=== PATIENT | male | born 1960 | race Caucasian/White ===

== ENCOUNTER 2017-10-21 10:38 | Inpatient (IN) | payer BC ==
--- NOTE | 2017-10-21 11:17 | ED ---
Lower Extremity - HPI Summary HPI Summary: Patient is a 57-year-old male who presents to emergency department for redness and swelling to his right ankle. Patient states he noticed swelling and pain to his right ankle 3 days ago. He states he noticed redness and warmth last night. He denies any injuries. He is in its uncontrolled diabetic. Patient states his last A1c was 7. Denies fever, chills, nausea, vomiting. Symptoms are [id number] in severity. Movement and touching ankle makes symptoms worse. Elvation makes symptoms better. 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 Pain Intensity: 7 - Allergies/Home Medications Allergies/Adverse Reactions: Allergies Allergy/AdvReac Type Severity Reaction Status Date / Time No Known Allergies Allergy Verified 10/21/17 10:56 PMH/Surg Hx/FS Hx/Imm Hx Previously Healthy: Yes Endocrine/Hematology History: Reports: Hx Diabetes - TYPE II Denies: Hx Thyroid Disease Cardiovascular History: Reports: Hx Hypertension Respiratory History: Reports: Hx Sleep Apnea Denies: Hx Asthma, Hx Chronic Obstructive Pulmonary Disease (COPD) GI History: Denies: Hx Ulcer History: Reports: Hx Kidney Stones - 03/2014-LEFT Musculoskeletal History: Reports: Hx Arthritis Sensory History: Denies: Hx Hearing Aid Comment Only: Hx Contacts or Glasses - GLASSES Opthamlomology History: Comment Only: Hx Contacts or Glasses - GLASSES - Surgical History Surgery Procedure, Year, and Place: 2010 LEFT hip replacement Hx Anesthesia Reactions: No Infectious Disease History: No Infectious Disease History: Denies: Hx Clostridium Difficile, Hx Hepatitis, Hx Human Immunodeficiency Virus (HIV), Hx of Known/Suspected MRSA, Hx Shingles, Hx Tuberculosis, Hx Known/ Suspected VRE, Hx Known/Suspected VRSA, History Other Infectious Disease, Traveled Outside the [place] in Last 30 Days - Social History Occupation: Employed Full-time Lives: With Family Alcohol Use: None Substance Use Type: Reports: None Smoking Status (MU): Former Smoker Type: Cigarettes Amount Used/How Often: 1PPD 4 YRS Length of Time of Smoking/Using Tobacco: 4 YRS Have You Smoked in the Last Year: No Review of Systems Constitutional: Negative Negative: Fever, Chills Gastrointestinal: Negative Negative: Vomiting, Nausea Positive: Other - Pain, redness, swelling to lateral right ankle. Positive: Other - Redness to right ankle All Other Systems Reviewed And Are Negative: Yes Physical Exam Triage Information Reviewed: Yes Vital Signs On Initial Exam: Initial Vitals Temp Pulse Resp BP Pulse Ox 97.1 F 85 18 162/90 96 10/21/17 10:52 10/21/17 10:52 10/21/17 10:52 10/21/17 10:52 10/21/17 10:52 Vital Signs Reviewed: Yes Appearance: Positive: Well-Appearing - Pt. lying in bed in NAD. present. Skin: Positive: Warm, Dry Head/Face: Positive: Normal Head/Face Inspection Eyes: Positive: Normal Neck: Positive: Supple Musculoskeletal: Positive: Other - Dermatitis venous stasis changes noted to bilateral lower extremities. Moderate edema noted to the right ankle with erythema and warmth overlying the lateral and medial aspect extending to the distal leg. Able to actively and passively move ankle with pain. No calf pain or edema. No wounds on foot. Neurological: Positive: Normal, CN Intact II-III Psychiatric: Positive: Affect/Mood Appropriate Diagnostics - Vital Signs Vital Signs Temp Pulse Resp BP Pulse Ox 10/21/17 10:52 97.1 F 85 18 162/90 96 - Laboratory Result Diagrams: 10/21/17 11:20 10/21/17 11:20 Lab Statement: Any lab studies that have been ordered have been reviewed, and results considered in the medical decision making process. Lower Extremity Course/Dx - Course Course Of Treatment: Patient presenting to the ER for an extensive cellulitis to his right ankle. He is afebrile and well-appearing. Vital signs within normal limits. Basic labs were drawn x-ray ordered. X-ray shows soft tissue edema without signs of fracture or osteomyelitis, reading per radiology. CBC shows a leukocytosis of 21,000. Uric acid within normal limits. Glucose elevated at 200. Patient is given a dose of IV Rocephin. Given the leukocytosis and extent of cellulitis hospitalist was consulted for admission. I spoke with hospitalist physician golf course assistant, Geetha Porter, and pt. will be accepted to the hospitalist service. Lortab given for pain. Results and plan discussed with pt. and . - Diagnoses Differential Diagnosis/HQI/PQRI: Positive: Cellulitis, Fracture (Closed), Gout, Infection, Osteomyelitis, Sprain, Strain Provider Diagnoses: Cellulitis, Leukocytosis Discharge - Sign-Out/Discharge Documenting (check all that apply): Patient Departure - Discharge Plan Condition: Stable Disposition: ADMITTED TO [facility] Referrals: Pedro aPndey MD [Primary Care Provider] - - Billing Disposition and Condition Condition: STABLE Disposition: Admitted to [facility]
[2017-10-21 11:30] LABS: Hematocrit 48 % (42-52); Hemoglobin 16.5 g/dl (14.0-18.0); Mean Corpuscular HGB Conc 35 g/dl (31-36); Mean Corpuscular Hemoglobin 33 pg (27-31); Mean Corpuscular Volume 96 fL (80-94); Mean Platelet Volume 8.5 um3 (7.4-10.4); Platelet Count 130 10^3/ul (150-450); Red Blood Count 4.96 10^6/ul (4.00-5.40); Red Cell Distribution Width 15 % (10.5-15); White Blood Count 21.1 10^3/ul (3.5-10.8)
[2017-10-21] MEDS ORDERED: HYDROcodone/ACETAMIN 5-325 MG* 1 TAB PO ONE (11:45)
[2017-10-21 11:54] LABS: ABS Basophils 0.1 10^3/ul (0-0.2); ABS Eosinophils 0.1 10^3/ul (0-0.6); ABS Lymphocytes 1.3 10^3/ul (1.0-4.8); ABS Monocytes 1.7 10^3/ul (0-0.8); ABS Neutrophils 17.9 10^3/ul (1.5-7.7); ABS Nucleated RBC 0 10^3/ul; Eosinophil % 0.3 % (0-6); Nucleated Red Blood Cells % 0.1
[2017-10-21 11:57] LABS: EGFR Non-African American 70.7 (>60); Uric Acid 6.9 mg/dL (4.4-7.6)
[2017-10-21] MEDS ORDERED: NS 0.9% 1000 ML* 1,000 ML IV ONE (11:59)
[2017-10-21] MEDS ORDERED: cefTRIAXone(*) 1 GM in NS 0.9% 50 ML* 50 ML IVPB ONE (11:59)
--- NOTE | 2017-10-21 12:22 | RAD ---
INDICATION: Right ankle pain and swelling. TECHNIQUE: 3 views of the right ankle were obtained. FINDINGS: There is diffuse soft tissue swelling. The bones are in normal alignment. No significant focal osseous abnormality or fracture is seen. There are large calcaneal spurs and ossification present in the distal Achilles tendon. IMPRESSION: DIFFUSE SOFT TISSUE SWELLING.
[2017-10-21] MEDS ORDERED: Albuterol 2.5 MG/3 ML NEB.SOL* (0.083%) INH PRN (14:23)
[2017-10-21] MEDS ORDERED: Ondansetron INJ* 2 MG/ML VIAL IV PRN (14:23)
[2017-10-21] MEDS ORDERED: Al Hydrox/Mg Hydrox/Simet LIQ* 30 ML UDC PO PRN (14:23)
[2017-10-21] MEDS ORDERED: Morphine VIAL* 4 MG/ML VIAL (1 ml vial) IV PRN (14:23)
[2017-10-21] MEDS ORDERED: Magnesium Hydroxide LIQ* 30 ML UDC PO PRN (14:23)
[2017-10-21] MEDS ORDERED: Acetaminophen TAB* 325 MG PO PRN (14:23)
[2017-10-21] MEDS ORDERED: Dextrose 50% Syringe 50 ML* 25 GM/50 ML SYRINGE IV PUSH PRN (14:34)
[2017-10-21] MEDS ORDERED: Vancomycin(*) 1,000 MG in NS 0.9% 250 ML* 250 ML IVPB ONE (14:35)
[2017-10-21] MEDS ORDERED: Vancomycin 2000 MG X 1 dose, then per Pharmacy PROTOCOL IVPB ONE ×2 (15:15)
[2017-10-21] MEDS ORDERED: Vancomycin per Pharmacy* NOTE FOLLOW UP PRN (15:16)
[2017-10-21] MEDS: Insulin GLARGINE(*) 1 UNITS UNIT SUBCUT SCH (17:49)
[2017-10-21] MEDS: Insulin LISPRO* 1 UNITS UNIT SUBCUT SCH ×2 (17:51→21:53)
--- NOTE | 2017-10-21 20:18 | HP ---
CC: Dr. ePdro Pandey; Dr. Steven Givens * ADMISSION HISTORY AND PHYSICAL: DATE OF ADMISSION: 10/21/17 PATIENT OF: Charlene Caballero DO, as attending hospitalist.* (DICTATED BY MARICEL TRAMMELL) PRIMARY CARE PHYSICIAN: Dr. Pedro Pandey. PRIMARY MINT MACHINE OPERATOR: Dr. Steven Givens. CHIEF COMPLAINT: Right foot and ankle swelling and redness. HISTORY OF PRESENT ILLNESS: Mr. Cat is a 57-year-old gentleman who has past medical history significant for hypertension, hyperlipidemia, insulin-dependent diabetes mellitus, as well as rheumatoid arthritis, for which he takes methotrexate and monthly infusions who presented to the emergency room with complaints of 2 days history of worsening right foot and ankle pain and swelling. The patient notes that he started noticing some pain at his right ankle 2 days ago while he was working. 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 He denies any injury, twisting his ankle, or taking a wrong step causing pain to his foot. He has history of cellulitis of his right lower extremity years ago, but he tells me it was involving more of his leg and never to his ankle. He also has remote history of uric acid kidney stones, for which he had cystoscopy with placement of left ureteral stent back in [address] Francois. He has been maintained on allopurinol, but denies any history of gouty arthritis. The patient noticed increased swelling and redness of his right ankle and foot to the point that he has not been able to bear weight on it, for which he came to the emergency room for further evaluation. He has been suffering from morbid obesity most of his adult life and he also has been insulin-dependent diabetic for an extended period of time. He tells me that his blood sugar at home has been very good overall, which measures between 130 and 140 postprandial. His latest hemoglobin A1c was about a month ago with value of 7.0. He has been seen by Dr. Steven Givens for management of his diabetes. He also has history of rheumatoid arthritis, for which he takes monthly infusions of tocilizumab and his last infusion was approximately 2 weeks ago. He was evaluated in the emergency room and was found to have leukocytosis with white count of 21,000. The patient himself denies any fever or chills at home. He also had an elevated C-reactive protein of 21.5, for which we were asked to see him for further evaluation of right foot cellulitis. He had an ankle x-ray that revealed significant soft tissue swelling, but there was no evidence of any bony involvement or osteomyelitis. We were asked to see the patient to consider admission for IV antibiotics ad further evaluation of right foot and ankle swelling and redness. PAST MEDICAL HISTORY: As mentioned above, significant for: 1. Hypertension. 2. Hyperlipidemia. 3. Morbid obesity. 4. Type 2 insulin-dependent diabetes mellitus. 5. Rheumatoid arthritis, for which he takes methotrexate every week and immunomodulator infusions once a month. 6. Also had history of anxiety and depression. PAST SURGICAL HISTORY: Significant for: 1. Left hip total arthroplasty. 2. Left cystoscopy with ureteral stent placement. CURRENT MEDICATIONS: His medications at home include: 1. Allopurinol 300 mg p.o. daily. 2. Lipitor 20 mg p.o. q.h.s. 3. BuSpar 10 mg p.o. t.i.d. 4. Diclofenac topical cream as needed. 5. Trulicity 0.75 mg subcu injections once weekly. 6. Folic acid 1 mg p.o. daily. 7. Hydrochlorothiazide 12.5 mg p.o. daily. 8. [place] 1 tablet q.4 hours as needed for pain. 9. Insulin SoloSTAR pen 85 units subcu b.i.d. 10. Insulin Humalog subcu per sliding scale. 11. Lisinopril 40 mg p.o. daily. 12. Metformin 1500 mg p.o. q.p.m. and 1000 mg p.o. q.a.m. 13. Methotrexate 2.5 mg tablet, 6 tablets p.o. q. weekly. 14. Paxil 40 mg p.o. daily. 15. Potassium citrate 2 tablets p.o. t.i.d. 16. Inderal 80 mg p.o. daily. 17. Actemra 650 mg IV infusion once monthly. ALLERGIES: He has no known drug allergies. FAMILY HISTORY: Reviewed and noncontributory. SOCIAL HISTORY: The patient is , lives with his , who carries the health care proxy. 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 He is a nonsmoker who drinks alcohol rarely and caffeine intake is minimal REVIEW OF SYSTEMS: See HPI. Otherwise, 14 points of review of systems were evaluated and essentially negative. PHYSICAL EXAMINATION GENERAL: He is a pleasant morbidly obese, middle-aged gentleman, in no acute distress or discomfort at the time of admission. VITAL SIGNS: Revealed a temperature of 97.1, blood pressure of 162/90, pulse of 85, respirations of 18 with O2 sat of 96% on room air. HEENT: Head is normocephalic, atraumatic. Sclerae anicteric. PERRLA. EOMs intact. Oropharynx is pink and moist. NECK: Supple. Trachea midline. No cervical adenopathy or thyromegaly. LUNGS: Clear to auscultation bilaterally. HEART: Regular rate and rhythm. Normal S1 and S2 without rubs, murmurs, or gallops. BACK: With normal curvature. No CVA tenderness. ABDOMEN: Soft, round, and obese, nontender and nondistended. No hernias, masses, or hepatosplenomegaly. RECTAL: Exam deferred at this time. EXTREMITIES: Without cyanosis, clubbing, or edema. Examination of the right lower extremity revealed marked swelling and erythema noted to the entire ankle and the dorsal aspect of the right foot with a moderate tenderness and warmth on palpation. Pedal pulse was assessed due to swelling. There is no crepitus, skin changes suggesting any gangrene. Sensation is intact. NEUROLOGIC: He is awake, alert, and oriented. Tongue is midline. There is no neurological deficit. LABORATORY WORKUP: CBC with white count of 21,000, hemoglobin 16.5, hematocrit 48, and platelets of 130. Chemistry panel with sodium of 133, potassium 4.5, chloride 96, CO2 of 27, BUN of 23, and creatinine of 1.0, glucose was 172. Lactic acid 2.1. C-reactive protein 21. LFTs within normal limits. ACCESSORY DIAGNOSTIC DATA: As mentioned above, ankle x-ray on the right side revealed diffuse soft tissue swelling. ASSESSMENT: A 57-year-old gentleman with past medical history significant for hypertension, hyperlipidemia, insulin-dependent diabetes mellitus, and morbid obesity who presented to the emergency room with 2 days history of worsening right ankle and foot pain and swelling and found to have leukocytosis and evidence on exam of lower extremity cellulitis. PLAN AND MANAGEMENT: 1. Right foot and ankle cellulitis. The patient will be admitted to the inpatient services under hospitalist care. He had a dose of ceftriaxone in the emergency room and I will add a dose of vancomycin based on his weight and let the pharmacy calculate followup doses. He denied any fever and he does not appear to be tachycardic and does not have any other criteria for sepsis. We will continue antibiotic coverage in addition to glycemic control. 2. Hypertension. We will continue his lisinopril and hydrochlorothiazide. 3. Type 2 insulin-dependent diabetes mellitus. We will continue his Lantus coverage b.i.d. as well as lispro per sliding scale and obtain fingersticks per protocol q.a.c. and q.h.s. His hemoglobin A1c was done about a month ago. Per the patient, it was 7.0 and I will not repeat it at this point. 4. Hyperlipidemia. We will continue his statin therapy. 5. History of uric acid nephrolithiasis. We will maintain the patient on allopurinol and I will repeat his uric acid level to rule out any possibility of gouty arthritis that may initiate his cellulitis. 6. Obstructive sleep apnea. We will continue his CPAP at home. 7. Morbid obesity. Supportive care. 8. Rheumatoid arthritis. We will provide pain medication and he appears to be stable at this point. 9. DVT prophylaxis. The patient is a high risk and will be covered with subcu heparin while inpatient. 10. Code status. He is a full code and his is the healthcare proxy carrier. TIME SPENT: Approximately 60 minutes were spent admitting this patient with greater than 50% of this time on taking history and performing physical exam. I went on and discussed the case with my attending who agreed to a plan of care. MARICEL TRAMMELL [id number]/CPS #: [id number] ROCKY
[2017-10-21] MEDS ORDERED: Morphine VIAL* 4 MG/ML VIAL (1 ml vial) IV ONE (21:25)
[2017-10-21] MEDS: Heparin VIAL(*) 5000 UNITS/ML VIAL (FIVE THOUSAND) SUBCUT SCH (21:35)
[2017-10-21] MEDS: busPIRone TAB* 10 MG PO SCH (21:35)
[2017-10-21] MEDS: Potassium Citrate (NF) 10 MEQ TAB PO SCH (21:35)
[2017-10-21] MEDS: Atorvastatin* 20 MG TAB PO SCH (21:35)
[2017-10-21] MEDS: Morphine VIAL* 4 MG/ML VIAL (1 ml vial) IV PRN (21:36)
[2017-10-21] MEDS: Vancomycin(*) 1,000 MG in NS 0.9% 250 ML* 250 ML IVPB SCH (21:36)
[2017-10-22] MEDS: oxyCODONE/Acetamin 5/325 MG* TAB PO PRN ×4 (00:03→19:26)
[2017-10-22] MEDS: Insulin GLARGINE(*) 1 UNITS UNIT SUBCUT SCH ×2 (03:33→15:43)
[2017-10-22] MEDS: Vancomycin(*) 1,000 MG in NS 0.9% 250 ML* 250 ML IVPB SCH ×3 (03:33→11:24)
[2017-10-22] MEDS: Heparin VIAL(*) 5000 UNITS/ML VIAL (FIVE THOUSAND) SUBCUT SCH ×3 (05:39→22:27)
[2017-10-22 06:49] LABS: Hematocrit 46 % (42-52); Hemoglobin 15.6 g/dl (14.0-18.0); Mean Corpuscular HGB Conc 34 g/dl (31-36); Mean Corpuscular Hemoglobin 33 pg (27-31); Mean Corpuscular Volume 97 fL (80-94); Mean Platelet Volume 8.3 um3 (7.4-10.4); Platelet Count 112 10^3/ul (150-450); Red Blood Count 4.71 10^6/ul (4.00-5.40); Red Cell Distribution Width 15 % (10.5-15); White Blood Count 20.1 10^3/ul (3.5-10.8)
[2017-10-22 06:51] LABS: ABS Basophils 0 10^3/ul (0-0.2); ABS Eosinophils 0.3 10^3/ul (0-0.6); ABS Lymphocytes 1.8 10^3/ul (1.0-4.8); ABS Monocytes 2.1 10^3/ul (0-0.8); ABS Neutrophils 15.9 10^3/ul (1.5-7.7); ABS Nucleated RBC 0 10^3/ul; Eosinophil % 1.3 % (0-6); Lymphocyte % 9.1 % (25-47); Nucleated Red Blood Cells % 0
[2017-10-22 07:29] LABS: EGFR Non-African American 80.2 (>60)
[2017-10-22] MEDS ORDERED: Propranolol TAB* 80 MG PO SCH (09:00)
[2017-10-22] MEDS: Insulin LISPRO* 1 UNITS UNIT SUBCUT SCH ×4 (09:17→22:26)
[2017-10-22] MEDS ORDERED: Vancomycin Trough Check NOTE FOLLOW UP ONE (10:00)
[2017-10-22] MEDS: PARoxetine HCL TAB* 20 MG PO SCH (10:04)
[2017-10-22] MEDS: Lisinopril TAB* 10 MG PO SCH (10:04)
[2017-10-22] MEDS: Hydrochlorothiazide TAB* 25 MG PO SCH (10:05)
[2017-10-22] MEDS: Folic Acid TAB* 1 MG PO SCH (10:05)
[2017-10-22] MEDS: Propranolol LA CAP* 80 MG PO SCH (10:05)
[2017-10-22] MEDS: busPIRone TAB* 10 MG PO SCH ×3 (10:05→22:20)
[2017-10-22] MEDS: Allopurinol TAB* 300 MG PO SCH (10:05)
[2017-10-22] MEDS: Potassium Citrate (NF) 10 MEQ TAB PO SCH ×2 (10:06→13:23)
[2017-10-22] MEDS ORDERED: ceFAZolin 1 GM VIAL(*) 1 GM in NS 0.9% 50 ML* 50 ML IVPB SCH (11:00)
[2017-10-22] MEDS ORDERED: cefTRIAXone(*) 1 GM in NS 0.9% 50 ML* 50 ML IVPB SCH (12:00)
[2017-10-22] MEDS: ceFAZolin 1 GM in Dextrose (*) 1 GM/50 ML BAG IVPB SCH ×2 (12:29→19:34)
--- NOTE | 2017-10-22 12:42 | PN ---
Subjective Date of Service: 10/22/17 Interval History: HOSPITALIST PROGRESS NOTE Patient seen and examined at bedside. Care reviewed and d/w Luz Peterson RN. He feels better today. States his right foot/leg is still very tender, but erythema and edema are significantly improved. No fever, chills, appetite is preserved, no N/V. Family History: Unchanged from Admission Social History: Unchanged from Admission Past Medical History: Unchanged from Admission Objective Active Medications: Acetaminophen (Tylenol Tab*) 975 mg PO Q6H PRN PRN Reason: FEVER/PAIN Al Hydrox/Mg Hydrox/Simethicone (Maalox Plus*) 30 ml PO Q6H PRN PRN Reason: INDIGESTION Albuterol (Ventolin 2.5 Mg/3 Ml Neb.Alejandrina*) 2.5 mg INH [id number] AWAKE PRN PRN Reason: sob/wheezing Allopurinol (Zyloprim Tab*) 300 mg PO DAILY REPLACED BY [facility] Last Admin: 10/22/17 10:05 Dose: 300 mg Atorvastatin Calcium (Lipitor*) 20 mg PO 2100 REPLACED BY [facility] Last Admin: 10/21/17 21:35 Dose: 20 mg Buspirone HCl (Buspar Tab*) 10 mg PO TID REPLACED BY [facility] Last Admin: 10/22/17 10:05 Dose: 10 mg Dextrose (D50w Syringe 50 Ml*) 12.5 gm IV PUSH .FOR FS < 60 - SS PRN PRN Reason: FS < 60 Folic Acid (Folvite Tab*) 1 mg PO DAILY REPLACED BY [facility] Last Admin: 10/22/17 10:05 Dose: 1 mg Heparin Sodium (Porcine) (Heparin Vial(*)) 5,000 units SUBCUT Q8HR REPLACED BY [facility] Last Admin: 10/22/17 05:39 Dose: 5,000 units Hydrochlorothiazide (Hydrodiuril Tab*) 12.5 mg PO DAILY REPLACED BY [facility] Last Admin: 10/22/17 10:05 Dose: 12.5 mg Cefazolin Sodium/Dextrose (Kefzol 1 Gm In Dextrose Duplex (*)) 1 gm in 50 mls @ 200 mls/hr IVPB Q8H REPLACED BY [facility] Last Admin: 10/22/17 12:29 Dose: 200 mls/hr Insulin Glargine (Lantus(*)) 68 units SUBCUT Q12H REPLACED BY [facility] Last Admin: 10/22/17 03:33 Dose: 68 units Insulin Human Lispro (Humalog*) 0 units SUBCUT ACHS REPLACED BY [facility]; Protocol Last Admin: 10/22/17 12:29 Dose: 3 units Lisinopril (Prinivil Tab*) 40 mg PO DAILY REPLACED BY [facility] Last Admin: 10/22/17 10:04 Dose: 40 mg Magnesium Hydroxide (Milk Of Magnesia Liq*) 30 ml PO Q4H PRN PRN Reason: CONSTIPATION Morphine Sulfate (Morphine Vial*) 4 mg IV Q4H PRN PRN Reason: PAIN Last Admin: 10/21/17 21:36 Dose: 4 mg Ondansetron HCl (Zofran Inj*) 4 mg IV Q4H PRN PRN Reason: NAUSEA/VOMITING Oxycodone/Acetaminophen (Percocet 5/325 Tab*) 2 tab PO Q6H PRN PRN Reason: Pain Last Admin: 10/22/17 06:06 Dose: 2 tab Paroxetine HCl (Paxil Tab*) 40 mg PO DAILY REPLACED BY [facility] Last Admin: 10/22/17 10:04 Dose: 40 mg Potassium Citrate (Urocit-K 10 (Nf)) 20 meq PO TID REPLACED BY [facility] Last Admin: 10/22/17 10:06 Dose: Not Given Propranolol HCl (Inderal [place]*) 80 mg PO DAILY REPLACED BY [facility] Last Admin: 10/22/17 10:05 Dose: 80 mg Vital Signs - 8 hr 10/22/17 10/22/17 06:06 07:48 Temperature 97.4 F Pulse Rate 70 Respiratory 18 21 Rate Blood Pressure 139/80 (mmHg) O2 Sat by Pulse 96 Oximetry Oxygen Devices in Use Now: None Appearance: Pleasant morbid obese male sitting up in bed in [facility]. Eyes: No Scleral Icterus Ears/Nose/Mouth/Throat: Mucous Membranes Moist Neck: Trachea Midline Respiratory: Symmetrical Chest Expansion and Respiratory Effort, Clear to Auscultation Cardiovascular: RRR - Normal S1 and S2 Skin: - - RLE edema from moore area down, with mild warmth and erythema. 2nd toe - hammertoe with cushion. Neurological: Alert and Oriented x 3, NL Muscle Strength and Tone Result Diagrams: 10/22/17 06:35 10/22/17 06:35 Assess/Plan/Problems-Billing Assessment: Mr. Cat is a 57yo M with PMH of morbid obesity with BMI 50, HTN, HLD, type 2 DM, RA, anxiety, depression, who presented to ED with c/o right foot swelling, redness, and pain found to have cellulitis. - Patient Problems (1) Sepsis Comment: - Present on admission, with leukocytosis and tachycardia. - Source is cellulitis. (2) Cellulitis Comment: - Suspect streptococcal in nature, as there is no purulence - d/c Vanco /Ceftriaxone and start Cefazoline. - No open wounds at this time, just small scabs on his moore; also has onychomycosis. (3) Type 2 diabetes mellitus Comment: - Continue Lantus and Lispro SS. - Will refer to [facility]. (4) HTN (hypertension) Comment: - Continue Lisinopril, HCTZ, and Propranolol. (5) HLD (hyperlipidemia) Comment: - Continue Atorvastatin. (6) Morbid obesity Comment: - Refer to [facility]. (7) Nephrolithiasis, uric acid Comment: - Continue Allopurinol. (8) rheumatoid arthritis Comment: - Continue MTX and Actemra as outpatient after infection is resolved. (9) DVT prophylaxis Comment: - SQ heparin. (10) Full code status
[2017-10-22] MEDS: PTO:Potassium Citrate (NF) 10 MEQ TAB PO SCH (22:19)
[2017-10-22] MEDS: Atorvastatin* 20 MG TAB PO SCH (22:20)
[2017-10-23] MEDS: oxyCODONE/Acetamin 5/325 MG* TAB PO PRN ×4 (01:30→20:51)
[2017-10-23] MEDS: Insulin GLARGINE(*) 1 UNITS UNIT SUBCUT SCH ×2 (03:31→15:41)
[2017-10-23] MEDS: ceFAZolin 1 GM in Dextrose (*) 1 GM/50 ML BAG IVPB SCH ×3 (03:33→20:26)
[2017-10-23] MEDS: Heparin VIAL(*) 5000 UNITS/ML VIAL (FIVE THOUSAND) SUBCUT SCH ×3 (06:16→20:52)
[2017-10-23 07:10] LABS: Hematocrit 45 % (42-52); Hemoglobin 15.1 g/dl (14.0-18.0); Mean Corpuscular HGB Conc 34 g/dl (31-36); Mean Corpuscular Hemoglobin 33 pg (27-31); Mean Corpuscular Volume 97 fL (80-94); Mean Platelet Volume 8.2 um3 (7.4-10.4); Platelet Count 119 10^3/ul (150-450); Red Cell Distribution Width 14 % (10.5-15); White Blood Count 16.1 10^3/ul (3.5-10.8)
[2017-10-23 07:15] LABS: ABS Basophils 0.1 10^3/ul (0-0.2); ABS Eosinophils 0.2 10^3/ul (0-0.6); ABS Lymphocytes 1.3 10^3/ul (1.0-4.8); ABS Monocytes 1.8 10^3/ul (0-0.8); ABS Neutrophils 12.8 10^3/ul (1.5-7.7); ABS Nucleated RBC 0 10^3/ul; Eosinophil % 0.9 % (0-6); Lymphocyte % 8.4 % (25-47); Nucleated Red Blood Cells % 0
[2017-10-23 07:30] LABS: EGFR Non-African American 73.9 (>60)
[2017-10-23] MEDS: Lisinopril TAB* 10 MG PO SCH (08:35)
[2017-10-23] MEDS: Propranolol LA CAP* 80 MG PO SCH (08:36)
[2017-10-23] MEDS: Allopurinol TAB* 300 MG PO SCH (08:36)
[2017-10-23] MEDS: Hydrochlorothiazide TAB* 25 MG PO SCH (08:37)
[2017-10-23] MEDS: PARoxetine HCL TAB* 20 MG PO SCH (08:38)
[2017-10-23] MEDS: busPIRone TAB* 10 MG PO SCH ×3 (08:38→20:52)
[2017-10-23] MEDS: Insulin LISPRO* 1 UNITS UNIT SUBCUT SCH ×4 (08:39→20:53)
[2017-10-23] MEDS: Folic Acid TAB* 1 MG PO SCH (08:39)
[2017-10-23] MEDS: PTO:Potassium Citrate (NF) 10 MEQ TAB PO SCH ×3 (08:39→20:54)
[2017-10-23] MEDS: Morphine VIAL* 4 MG/ML VIAL (1 ml vial) IV PRN (10:56)
--- NOTE | 2017-10-23 12:58 | PN ---
Subjective Date of Service: 10/23/17 Interval History: HOSPITALIST PROGRESS NOTE Patient seen and examined at bedside. Care reviewed and d/w Bj Saldana RN. He feels better today. Right foot pain is moderate today, erythema and warmth much improved, but edema is still severe. Able to partially weight bear on the right with a walker. No fever, chills, dyspnea, N/V/D. Tolerating diet well. Family History: Unchanged from Admission Social History: Unchanged from Admission Past Medical History: Unchanged from Admission Objective Active Medications: Acetaminophen (Tylenol Tab*) 975 mg PO Q6H PRN PRN Reason: FEVER/PAIN Al Hydrox/Mg Hydrox/Simethicone (Maalox Plus*) 30 ml PO Q6H PRN PRN Reason: INDIGESTION Albuterol (Ventolin 2.5 Mg/3 Ml Neb.Alejandrina*) 2.5 mg INH [id number] AWAKE PRN PRN Reason: sob/wheezing Allopurinol (Zyloprim Tab*) 300 mg PO DAILY [facility] Last Admin: 10/23/17 08:36 Dose: 300 mg Atorvastatin Calcium (Lipitor*) 20 mg PO 2100 [facility] Last Admin: 10/22/17 22:20 Dose: 20 mg Buspirone HCl (Buspar Tab*) 10 mg PO TID [facility] Last Admin: 10/23/17 08:38 Dose: 10 mg Dextrose (D50w Syringe 50 Ml*) 12.5 gm IV PUSH .FOR FS < 60 - SS PRN PRN Reason: FS < 60 Folic Acid (Folvite Tab*) 1 mg PO DAILY [facility] Last Admin: 10/23/17 08:39 Dose: 1 mg Heparin Sodium (Porcine) (Heparin Vial(*)) 5,000 units SUBCUT Q8HR [facility] Last Admin: 10/23/17 06:16 Dose: 5,000 units Hydrochlorothiazide (Hydrodiuril Tab*) 12.5 mg PO DAILY [facility] Last Admin: 10/23/17 08:37 Dose: 12.5 mg Cefazolin Sodium/Dextrose (Kefzol 1 Gm In Dextrose Duplex (*)) 1 gm in 50 mls @ 200 mls/hr IVPB Q8H [facility] Last Admin: 10/23/17 03:33 Dose: 200 mls/hr Insulin Glargine (Lantus(*)) 68 units SUBCUT Q12H [facility] Last Admin: 10/23/17 03:31 Dose: 68 units Insulin Human Lispro (Humalog*) 0 units SUBCUT ACHS [facility]; Protocol Last Admin: 10/23/17 08:39 Dose: 3 units Lisinopril (Prinivil Tab*) 40 mg PO DAILY [facility] Last Admin: 10/23/17 08:35 Dose: 40 mg Magnesium Hydroxide (Milk Of Magnesia Liq*) 30 ml PO Q4H PRN PRN Reason: CONSTIPATION Morphine Sulfate (Morphine Inj (Syringe)*) 4 mg IV Q4H PRN PRN Reason: PAIN Ondansetron HCl (Zofran Inj*) 4 mg IV Q4H PRN PRN Reason: NAUSEA/VOMITING Oxycodone/Acetaminophen (Percocet 5/325 Tab*) 2 tab PO Q6H PRN PRN Reason: Pain Last Admin: 10/23/17 07:37 Dose: 2 tab Paroxetine HCl (Paxil Tab*) 40 mg PO DAILY [facility] Last Admin: 10/23/17 08:38 Dose: 40 mg Potassium Citrate (Urocit-K 10 (Nf)) 20 meq PO TID [facility] Last Admin: 10/23/17 08:39 Dose: 20 meq Propranolol HCl (Inderal [place]*) 80 mg PO DAILY [facility] Last Admin: 10/23/17 08:36 Dose: 80 mg Vital Signs - 8 hr Selected Entries 10/23/17 03:30 Temperature 97.9 F Pulse Rate 70 Respiratory 20 Rate Blood Pressure 126/59 (mmHg) O2 Sat by Pulse 96 Oximetry Oxygen Devices in Use Now: None Appearance: Morbid obese gentleman lying in bed in [facility]. Eyes: No Scleral Icterus Ears/Nose/Mouth/Throat: Mucous Membranes Moist Neck: Trachea Midline Respiratory: Symmetrical Chest Expansion and Respiratory Effort, Clear to Auscultation Cardiovascular: NL Sounds; No Murmurs; No JVD, RRR Extremities: - - RLE edema, mild erythema and warmth, tenderness on palpation Neurological: Alert and Oriented x 3, NL Muscle Strength and Tone Result Diagrams: 10/23/17 06:45 10/23/17 06:45 Assess/Plan/Problems-Billing Assessment: Mr. Cat is a 57yo M with PMH of morbid obesity with BMI 50, HTN, HLD, type 2 DM, RA, anxiety, depression, who presented to ED with c/o right foot swelling, redness, and pain found to have cellulitis. - Patient Problems (1) Sepsis Comment: - Present on admission, with leukocytosis and tachycardia. - Source is cellulitis. (2) Cellulitis Comment: - Suspect streptococcal in nature, as there is no purulence - continue Cefazoline. - No open wounds at this time, just small scabs on his moore; also has onychomycosis. (3) Type 2 diabetes mellitus Comment: - Continue Lantus and Lispro SS. - Will refer to [facility]. (4) HTN (hypertension) Comment: - Continue Lisinopril, HCTZ, and Propranolol. (5) HLD (hyperlipidemia) Comment: - Continue Atorvastatin. (6) Morbid obesity Comment: - With BMI 50. Will benefit of diet and weight loss - refer to [facility]. (7) Nephrolithiasis, uric acid Comment: - Continue Allopurinol and potassium cytrate. (8) rheumatoid arthritis Comment: - Continue MTX and Actemra as outpatient after infection is resolved. (9) DVT prophylaxis Comment: - SQ heparin. (10) Full code status Status and Disposition: Inpatient.
[2017-10-23] MEDS: Morphine INJ* 2 MG/ML 1 ML SYRINGE (TWO MG - NEW SYRINGE VERSION) IV PRN (16:20)
[2017-10-23] MEDS: Atorvastatin* 20 MG TAB PO SCH (20:51)
[2017-10-24] MEDS: Insulin GLARGINE(*) 1 UNITS UNIT SUBCUT SCH ×2 (03:08→17:27)
[2017-10-24] MEDS: ceFAZolin 1 GM in Dextrose (*) 1 GM/50 ML BAG IVPB SCH ×3 (03:08→20:36)
[2017-10-24] MEDS: oxyCODONE/Acetamin 5/325 MG* TAB PO PRN ×3 (03:09→23:35)
[2017-10-24] MEDS: Heparin VIAL(*) 5000 UNITS/ML VIAL (FIVE THOUSAND) SUBCUT SCH ×3 (06:21→21:36)
[2017-10-24 06:26] LABS: Hematocrit 44 % (42-52); Hemoglobin 14.8 g/dl (14.0-18.0); Mean Corpuscular HGB Conc 34 g/dl (31-36); Mean Corpuscular Hemoglobin 33 pg (27-31); Mean Corpuscular Volume 97 fL (80-94); Mean Platelet Volume 7.9 um3 (7.4-10.4); Platelet Count 143 10^3/ul (150-450); Red Blood Count 4.55 10^6/ul (4.00-5.40); Red Cell Distribution Width 14 % (10.5-15); White Blood Count 13.3 10^3/ul (3.5-10.8)
[2017-10-24 06:36] LABS: ABS Basophils 0.1 10^3/ul (0-0.2); ABS Eosinophils 0.1 10^3/ul (0-0.6); ABS Monocytes 1.7 10^3/ul (0-0.8); ABS Neutrophils 10.4 10^3/ul (1.5-7.7); ABS Nucleated RBC 0 10^3/ul; Eosinophil % 0.6 % (0-6); Lymphocyte % 7.7 % (25-47); Nucleated Red Blood Cells % 0.2
[2017-10-24] MEDS: Morphine INJ* 2 MG/ML 1 ML SYRINGE (TWO MG - NEW SYRINGE VERSION) IV PRN (09:13)
[2017-10-24] MEDS: Propranolol LA CAP* 80 MG PO SCH (09:19)
[2017-10-24] MEDS: PARoxetine HCL TAB* 20 MG PO SCH (09:19)
[2017-10-24] MEDS: Hydrochlorothiazide TAB* 25 MG PO SCH (09:20)
[2017-10-24] MEDS: Allopurinol TAB* 300 MG PO SCH (09:20)
[2017-10-24] MEDS: busPIRone TAB* 10 MG PO SCH ×3 (09:21→21:36)
[2017-10-24] MEDS: Lisinopril TAB* 10 MG PO SCH (09:21)
[2017-10-24] MEDS: Folic Acid TAB* 1 MG PO SCH (09:21)
[2017-10-24] MEDS: PTO:Potassium Citrate (NF) 10 MEQ TAB PO SCH ×3 (09:22→21:36)
[2017-10-24] MEDS: Insulin LISPRO* 1 UNITS UNIT SUBCUT SCH ×4 (09:22→21:36)
[2017-10-24] MEDS: Indomethacin CAP* 50 MG PO SCH ×3 (11:17→21:35)
[2017-10-24] MEDS: Omeprazole CAP* 20 MG PO SCH (11:17)
[2017-10-24] MEDS: Colchicine* 0.6 MG TAB PO SCH ×2 (11:18→21:34)
--- NOTE | 2017-10-24 13:02 | PN ---
Subjective Date of Service: 10/24/17 Interval History: HOSPITALIST PROGRESS NOTE Patient seen and examined at bedside. Care reviewed and d/w Bj Saldana RN. 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 Denies CP, dyspnea, palpitations, tolerating diet well, no N/V. Family History: Unchanged from Admission Social History: Unchanged from Admission Past Medical History: Unchanged from Admission Objective Active Medications: Acetaminophen (Tylenol Tab*) 975 mg PO Q6H PRN PRN Reason: FEVER/PAIN Al Hydrox/Mg Hydrox/Simethicone (Maalox Plus*) 30 ml PO Q6H PRN PRN Reason: INDIGESTION Albuterol (Ventolin 2.5 Mg/3 Ml Neb.Alejandrina*) 2.5 mg INH [id number] AWAKE PRN PRN Reason: sob/wheezing Allopurinol (Zyloprim Tab*) 300 mg PO DAILY [facility] Last Admin: 10/24/17 09:20 Dose: 300 mg Atorvastatin Calcium (Lipitor*) 20 mg PO 2100 [facility] Last Admin: 10/23/17 20:51 Dose: 20 mg Buspirone HCl (Buspar Tab*) 10 mg PO TID [facility] Last Admin: 10/24/17 09:21 Dose: 10 mg Colchicine (Colcrys*) 0.6 mg PO BID [facility] Last Admin: 10/24/17 11:18 Dose: 0.6 mg Dextrose (D50w Syringe 50 Ml*) 12.5 gm IV PUSH .FOR FS < 60 - SS PRN PRN Reason: FS < 60 Folic Acid (Folvite Tab*) 1 mg PO DAILY [facility] Last Admin: 10/24/17 09:21 Dose: 1 mg Heparin Sodium (Porcine) (Heparin Vial(*)) 5,000 units SUBCUT Q8HR [facility] Last Admin: 10/24/17 06:21 Dose: 5,000 units Hydrochlorothiazide (Hydrodiuril Tab*) 12.5 mg PO DAILY [facility] Last Admin: 10/24/17 09:20 Dose: 12.5 mg Cefazolin Sodium/Dextrose (Kefzol 1 Gm In Dextrose Duplex (*)) 1 gm in 50 mls @ 200 mls/hr IVPB Q8H [facility] Last Admin: 10/24/17 11:18 Dose: 200 mls/hr Indomethacin (Indocin Cap*) 50 mg PO TID [facility] Last Admin: 10/24/17 11:17 Dose: 50 mg Insulin Glargine (Lantus(*)) 68 units SUBCUT Q12H [facility] Last Admin: 10/24/17 03:08 Dose: 68 units Insulin Human Lispro (Humalog*) 0 units SUBCUT ACHS [facility]; Protocol Last Admin: 10/24/17 12:10 Dose: 9 units Lisinopril (Prinivil Tab*) 40 mg PO DAILY [facility] Last Admin: 10/24/17 09:21 Dose: 40 mg Magnesium Hydroxide (Milk Of Magnesia Liq*) 30 ml PO Q4H PRN PRN Reason: CONSTIPATION Morphine Sulfate (Morphine Inj (Syringe)*) 4 mg IV Q4H PRN PRN Reason: PAIN Last Admin: 10/24/17 09:13 Dose: 4 mg Omeprazole (Prilosec Cap*) 20 mg PO 0730 [facility] Last Admin: 10/24/17 11:17 Dose: 20 mg Ondansetron HCl (Zofran Inj*) 4 mg IV Q4H PRN PRN Reason: NAUSEA/VOMITING Oxycodone/Acetaminophen (Percocet 5/325 Tab*) 2 tab PO Q6H PRN PRN Reason: Pain Last Admin: 10/24/17 12:09 Dose: 2 tab Paroxetine HCl (Paxil Tab*) 40 mg PO DAILY [facility] Last Admin: 10/24/17 09:19 Dose: 40 mg Potassium Citrate (Urocit-K 10 (Nf)) 20 meq PO TID [facility] Last Admin: 10/24/17 09:22 Dose: 20 meq Propranolol HCl (Inderal La Cap*) 80 mg PO DAILY [facility] Last Admin: 10/24/17 09:19 Dose: 80 mg Vital Signs - 8 hr Selected Entries 10/24/17 03:09 Temperature 98.9 F Pulse Rate 70 Respiratory 18 Rate Blood Pressure 125/63 (mmHg) O2 Sat by Pulse 97 Oximetry Oxygen Devices in Use Now: None Appearance: Pleasant morbid obese male lying in bed in [facility]. Eyes: No Scleral Icterus Ears/Nose/Mouth/Throat: Mucous Membranes Moist Neck: Trachea Midline Respiratory: Symmetrical Chest Expansion and Respiratory Effort, Clear to Auscultation Cardiovascular: RRR - Normal S1 and S2 Extremities: - - Right foot/ankle edema and erythema, good pulses, good capillary refill Neurological: Alert and Oriented x 3, NL Muscle Strength and Tone Result Diagrams: 10/24/17 06:11 10/23/17 06:45 Assess/Plan/Problems-Billing Assessment: Mr. Cat is a 57yo M with PMH of morbid obesity with BMI 50, HTN, HLD, type 2 DM, RA, anxiety, depression, who presented to ED with c/o right foot swelling, redness, and pain found to have cellulitis. - Patient Problems (1) Sepsis Comment: - Present on admission, with leukocytosis and tachycardia. - Source is cellulitis. (2) Cellulitis Comment: - Suspect streptococcal in nature, as there is no purulence - continue Cefazoline. - No open wounds at this time, just small scabs on his moore; also has onychomycosis. - WBC is trending down, but CRP is trending up. Edema is still considerable. I suspect he may have a component of gouty arthritis too, but his uric acid is not elevated due to Allopurinol therapy for his nephrolithiasis. Will add Colchicine and Indomethacin, and will continue to monitor. (3) Type 2 diabetes mellitus Comment: - Continue Lantus and Lispro SS. - Will refer to [facility]. (4) HTN (hypertension) Comment: - Continue Lisinopril, HCTZ, and Propranolol. (5) HLD (hyperlipidemia) Comment: - Continue Atorvastatin. (6) Morbid obesity Comment: - With BMI 50. Will benefit of diet and weight loss - refer to [facility]. (7) Nephrolithiasis, uric acid Comment: - Continue Allopurinol and potassium cytrate. (8) rheumatoid arthritis Comment: - Continue MTX and Actemra as outpatient after infection is resolved. (9) DVT prophylaxis Comment: - SQ heparin. (10) Full code status Status and Disposition: Inpatient.
[2017-10-24] MEDS: Atorvastatin* 20 MG TAB PO SCH (21:35)
[2017-10-25] MEDS: Heparin VIAL(*) 5000 UNITS/ML VIAL (FIVE THOUSAND) SUBCUT SCH ×3 (05:49→22:09)
[2017-10-25] MEDS: Insulin GLARGINE(*) 1 UNITS UNIT SUBCUT SCH ×2 (05:49→17:31)
[2017-10-25] MEDS: ceFAZolin 1 GM in Dextrose (*) 1 GM/50 ML BAG IVPB SCH ×3 (05:49→19:44)
[2017-10-25 06:52] LABS: Hematocrit 42 % (42-52); Hemoglobin 14.4 g/dl (14.0-18.0); Mean Corpuscular HGB Conc 34 g/dl (31-36); Mean Corpuscular Hemoglobin 33 pg (27-31); Mean Corpuscular Volume 96 fL (80-94); Mean Platelet Volume 8.1 um3 (7.4-10.4); Platelet Count 141 10^3/ul (150-450); Red Blood Count 4.38 10^6/ul (4.00-5.40); Red Cell Distribution Width 14 % (10.5-15); White Blood Count 10.9 10^3/ul (3.5-10.8)
[2017-10-25 06:59] LABS: ABS Basophils 0.1 10^3/ul (0-0.2); ABS Eosinophils 0.2 10^3/ul (0-0.6); ABS Lymphocytes 1.8 10^3/ul (1.0-4.8); ABS Monocytes 1.8 10^3/ul (0-0.8); ABS Nucleated RBC 0 10^3/ul; Eosinophil % 2.2 % (0-6); Lymphocyte % 16.3 % (25-47); Nucleated Red Blood Cells % 0.1
[2017-10-25 07:12] LABS: EGFR Non-African American 51.4 (>60)
[2017-10-25] MEDS: Folic Acid TAB* 1 MG PO SCH (09:17)
[2017-10-25] MEDS: Allopurinol TAB* 300 MG PO SCH (09:17)
[2017-10-25] MEDS: Insulin LISPRO* 1 UNITS UNIT SUBCUT SCH ×4 (09:17→20:41)
[2017-10-25] MEDS: PARoxetine HCL TAB* 20 MG PO SCH (09:17)
[2017-10-25] MEDS: Lisinopril TAB* 10 MG PO SCH (09:17)
[2017-10-25] MEDS: Propranolol LA CAP* 80 MG PO SCH (09:17)
[2017-10-25] MEDS: Omeprazole CAP* 20 MG PO SCH (09:17)
[2017-10-25] MEDS: Hydrochlorothiazide TAB* 25 MG PO SCH (09:17)
[2017-10-25] MEDS: busPIRone TAB* 10 MG PO SCH ×3 (09:17→20:41)
[2017-10-25] MEDS: Colchicine* 0.6 MG TAB PO SCH ×2 (09:18→20:40)
[2017-10-25] MEDS: Indomethacin CAP* 50 MG PO SCH (09:19)
[2017-10-25] MEDS: PTO:Potassium Citrate (NF) 10 MEQ TAB PO SCH ×3 (09:19→20:40)
[2017-10-25] MEDS: predniSONE TAB* 10 MG PO SCH (10:08)
[2017-10-25] MEDS: oxyCODONE/Acetamin 5/325 MG* TAB PO PRN ×2 (12:07→22:08)
--- NOTE | 2017-10-25 13:41 | PN ---
Subjective Date of Service: 10/25/17 Interval History: HOSPITALIST PROGRESS NOTE Patient seen and examined at bedside. Care reviewed and d/w Noa Johnson RN. He feels much improved today. After first dose of Colchicine/Idomethacin he felt much improved, was able to bear weight on his RLE. Family History: Unchanged from Admission Social History: Unchanged from Admission Past Medical History: Unchanged from Admission Objective Active Medications: Acetaminophen (Tylenol Tab*) 975 mg PO Q6H PRN PRN Reason: FEVER/PAIN Al Hydrox/Mg Hydrox/Simethicone (Maalox Plus*) 30 ml PO Q6H PRN PRN Reason: INDIGESTION Albuterol (Ventolin 2.5 Mg/3 Ml Neb.Alejandrina*) 2.5 mg INH RT.[id number] AWAKE PRN PRN Reason: sob/wheezing Allopurinol (Zyloprim Tab*) 300 mg PO DAILY [facility] Last Admin: 10/25/17 09:17 Dose: 300 mg Atorvastatin Calcium (Lipitor*) 20 mg PO 2100 [facility] Last Admin: 10/24/17 21:35 Dose: 20 mg Buspirone HCl (Buspar Tab*) 10 mg PO TID [facility] Last Admin: 10/25/17 13:15 Dose: 10 mg Colchicine (Colcrys*) 0.6 mg PO BID [facility] Last Admin: 10/25/17 09:18 Dose: 0.6 mg Dextrose (D50w Syringe 50 Ml*) 12.5 gm IV PUSH .FOR FS < 60 - SS PRN PRN Reason: FS < 60 Folic Acid (Folvite Tab*) 1 mg PO DAILY [facility] Last Admin: 10/25/17 09:17 Dose: 1 mg Heparin Sodium (Porcine) (Heparin Vial(*)) 5,000 units SUBCUT Q8HR [facility] Last Admin: 10/25/17 13:15 Dose: 5,000 units Hydrochlorothiazide (Hydrodiuril Tab*) 12.5 mg PO DAILY [facility] Last Admin: 10/25/17 09:17 Dose: 12.5 mg Cefazolin Sodium/Dextrose (Kefzol 1 Gm In Dextrose Duplex (*)) 1 gm in 50 mls @ 200 mls/hr IVPB Q8H [facility] Last Admin: 10/25/17 12:07 Dose: 200 mls/hr Insulin Glargine (Lantus(*)) 75 units SUBCUT Q12H [facility] Last Admin: 10/25/17 05:49 Dose: 75 unit Insulin Human Lispro (Humalog*) [address] [facility]; Protocol Last Admin: 10/25/17 13:15 Dose: 9 units Lisinopril (Prinivil Tab*) 40 mg PO DAILY [facility] Last Admin: 10/25/17 09:17 Dose: 40 mg Magnesium Hydroxide (Milk Of Magnesia Liq*) 30 ml PO Q4H PRN PRN Reason: CONSTIPATION Morphine Sulfate (Morphine Inj (Syringe)*) 4 mg IV Q4H PRN PRN Reason: PAIN Last Admin: 10/24/17 09:13 Dose: 4 mg Omeprazole (Prilosec Cap*) 20 mg PO 0730 [facility] Last Admin: 10/25/17 09:17 Dose: 20 mg Ondansetron HCl (Zofran Inj*) 4 mg IV Q4H PRN PRN Reason: NAUSEA/VOMITING Oxycodone/Acetaminophen (Percocet 5/325 Tab*) 2 tab PO Q6H PRN PRN Reason: Pain Last Admin: 10/25/17 12:07 Dose: 2 tab Paroxetine HCl (Paxil Tab*) 40 mg PO DAILY [facility] Last Admin: 10/25/17 09:17 Dose: 40 mg Potassium Citrate (Urocit-K 10 (Nf)) 20 meq PO TID [facility] Last Admin: 10/25/17 13:15 Dose: 20 meq Prednisone (Deltasone Tab*) 10 mg PO DAILY [facility] Last Admin: 10/25/17 10:08 Dose: 10 mg Propranolol HCl (Inderal La Cap*) 80 mg PO DAILY [facility] Last Admin: 10/25/17 09:17 Dose: 80 mg Vital Signs - 8 hr 10/25/1718 10/25/17 07:19 08:00 11:29 Temperature 97.5 F 97.7 F Pulse Rate 56 58 Respiratory 18 18 17 Rate Blood Pressure 117/59 122/69 (mmHg) O2 Sat by Pulse 98 97 Oximetry Oxygen Devices in Use Now: None, CPAP Appearance: Pleasant morbid obese male lying in bed in [facility]. Eyes: No Scleral Icterus Ears/Nose/Mouth/Throat: Mucous Membranes Moist Neck: Trachea Midline Respiratory: Symmetrical Chest Expansion and Respiratory Effort, Clear to Auscultation Cardiovascular: NL Sounds; No Murmurs; No JVD, RRR Extremities: - - RLE edema, mild erythema and warmth Neurological: Alert and Oriented x 3, NL Muscle Strength and Tone Result Diagrams: 10/25/17 06:22 10/25/17 06:22 Assess/Plan/Problems-Billing Assessment: Mr. Cat is a 57yo M with PMH of morbid obesity with BMI 50, HTN, HLD, type 2 DM, RA, anxiety, depression, who presented to ED with c/o right foot swelling, redness, and pain found to have cellulitis. - Patient Problems (1) Sepsis Comment: - Present on admission, with leukocytosis and tachycardia. - Source is cellulitis. (2) Cellulitis Comment: - Suspect streptococcal in nature, as there is no purulence - continue Cefazoline. - No open wounds at this time, just small scabs on his moore; also has onychomycosis. - WBC is trending down, but CRP is trending up. Edema is still considerable. I suspect he may have a component of gouty arthritis too, but his uric acid is not elevated due to Allopurinol therapy for his nephrolithiasis. (3) Gouty arthritis Comment: - Suspect gout is also playing a role on his clinical picture. - Responded well to Colchicine/Indomethacin, but his creatinine is trending up. Will d/c indomethacin and start low dose prednisone. - Continue Allopurinol. (4) LILI (acute kidney injury) Comment: - Likely secondary to NSAID use. - D/c Indomethacin and monitor renal function. (5) Type 2 diabetes mellitus Comment: - Continue Lantus and Lispro SS. - Will refer to [facility]. (6) HTN (hypertension) Comment: - Continue Lisinopril, HCTZ, and Propranolol. (7) HLD (hyperlipidemia) Comment: - Continue Atorvastatin. (8) Morbid obesity Comment: - With BMI 50. Will benefit of diet and weight loss - refer to [facility]. (9) Nephrolithiasis, uric acid Comment: - Continue Allopurinol and potassium citrate. (10) rheumatoid arthritis Comment: - Continue MTX and Actemra as outpatient after infection is resolved. (11) DVT prophylaxis Comment: - SQ heparin. (12) Full code status Status and Disposition: Inpatient.
[2017-10-25] MEDS: Atorvastatin* 20 MG TAB PO SCH (20:40)
[2017-10-26] MEDS: ceFAZolin 1 GM in Dextrose (*) 1 GM/50 ML BAG IVPB SCH ×3 (03:42→22:28)
[2017-10-26] MEDS: Heparin VIAL(*) 5000 UNITS/ML VIAL (FIVE THOUSAND) SUBCUT SCH ×3 (05:18→23:00)
[2017-10-26] MEDS: Insulin GLARGINE(*) 1 UNITS UNIT SUBCUT SCH ×2 (05:18→18:17)
[2017-10-26] MEDS: oxyCODONE/Acetamin 5/325 MG* TAB PO PRN (07:13)
[2017-10-26] MEDS: Insulin LISPRO* 1 UNITS UNIT SUBCUT SCH ×4 (07:16→23:00)
[2017-10-26] MEDS: PTO:Potassium Citrate (NF) 10 MEQ TAB PO SCH ×3 (07:58→22:59)
[2017-10-26] MEDS: Propranolol LA CAP* 80 MG PO SCH (07:58)
[2017-10-26] MEDS: Omeprazole CAP* 20 MG PO SCH (07:59)
[2017-10-26] MEDS: Folic Acid TAB* 1 MG PO SCH (07:59)
[2017-10-26] MEDS: Allopurinol TAB* 300 MG PO SCH (07:59)
[2017-10-26] MEDS: predniSONE TAB* 10 MG PO SCH (07:59)
[2017-10-26] MEDS: PARoxetine HCL TAB* 20 MG PO SCH (07:59)
[2017-10-26] MEDS: busPIRone TAB* 10 MG PO SCH ×3 (07:59→22:59)
[2017-10-26] MEDS: Lisinopril TAB* 10 MG PO SCH (07:59)
[2017-10-26] MEDS: Colchicine* 0.6 MG TAB PO SCH ×2 (07:59→22:59)
[2017-10-26] MEDS: Hydrochlorothiazide TAB* 25 MG PO SCH (07:59)
--- NOTE | 2017-10-26 08:30 | PN ---
Subjective Date of Service: 10/26/17 Interval History: HOSPITALIST PROGRESS NOTE Patient seen and examined at bedside. Care reviewed and d/w Noa Johnson RN. He felt well during the day yesterday, but pain returned this AM and he feels his right foot is redder. Family History: Unchanged from Admission Social History: Unchanged from Admission Past Medical History: Unchanged from Admission Objective Active Medications: Acetaminophen (Tylenol Tab*) 975 mg PO Q6H PRN PRN Reason: FEVER/PAIN Al Hydrox/Mg Hydrox/Simethicone (Maalox Plus*) 30 ml PO Q6H PRN PRN Reason: INDIGESTION Albuterol (Ventolin 2.5 Mg/3 Ml Neb.Alejandrina*) 2.5 mg INH RT.[id number] AWAKE PRN PRN Reason: sob/wheezing Allopurinol (Zyloprim Tab*) 300 mg PO DAILY [facility] Last Admin: 10/26/17 07:59 Dose: 300 mg Atorvastatin Calcium (Lipitor*) 20 mg PO 2100 [facility] Last Admin: 10/25/17 20:40 Dose: 20 mg Buspirone HCl (Buspar Tab*) 10 mg PO TID [facility] Last Admin: 10/26/17 07:59 Dose: 10 mg Colchicine (Colcrys*) 0.6 mg PO BID [facility] Last Admin: 10/26/17 07:59 Dose: 0.6 mg Dextrose (D50w Syringe 50 Ml*) 12.5 gm IV PUSH .FOR FS < 60 - SS PRN PRN Reason: FS < 60 Folic Acid (Folvite Tab*) 1 mg PO DAILY [facility] Last Admin: 10/26/17 07:59 Dose: 1 mg Heparin Sodium (Porcine) (Heparin Vial(*)) 5,000 units SUBCUT Q8HR [facility] Last Admin: 10/26/17 05:18 Dose: 5,000 units Hydrochlorothiazide (Hydrodiuril Tab*) 12.5 mg PO DAILY [facility] Last Admin: 10/26/17 07:59 Dose: 12.5 mg Cefazolin Sodium/Dextrose (Kefzol 1 Gm In Dextrose Duplex (*)) 1 gm in 50 mls @ 200 mls/hr IVPB Q8H [facility] Last Admin: 10/26/17 03:42 Dose: 200 mls/hr Insulin Glargine (Lantus(*)) 75 units SUBCUT Q12H [facility] Last Admin: 10/26/17 05:18 Dose: 75 unit Insulin Human Lispro (Humalog*) 0 units SUBCUT ACHS [facility]; Protocol Last Admin: 10/26/17 07:16 Dose: Not Given Lisinopril (Prinivil Tab*) 40 mg PO DAILY [facility] Last Admin: 10/26/17 07:59 Dose: 40 mg Magnesium Hydroxide (Milk Of Magnesia Liq*) 30 ml PO Q4H PRN PRN Reason: CONSTIPATION Morphine Sulfate (Morphine Inj (Syringe)*) 4 mg IV Q4H PRN PRN Reason: PAIN Last Admin: 10/24/17 09:13 Dose: 4 mg Omeprazole (Prilosec Cap*) 20 mg PO 729 [facility] Last Admin: 10/26/17 07:59 Dose: 20 mg Ondansetron HCl (Zofran Inj*) 4 mg IV Q4H PRN PRN Reason: NAUSEA/VOMITING Oxycodone/Acetaminophen (Percocet 5/325 Tab*) 2 tab PO Q6H PRN PRN Reason: Pain Last Admin: 10/26/17 07:13 Dose: 2 tab Paroxetine HCl (Paxil Tab*) 40 mg PO DAILY [facility] Last Admin: 10/26/17 07:59 Dose: 40 mg Potassium Citrate (Urocit-K 10 (Nf)) 20 meq PO TID [facility] Last Admin: 10/26/17 07:58 Dose: 20 meq Prednisone (Deltasone Tab*) 10 mg PO DAILY [facility] Last Admin: 10/26/17 07:59 Dose: 10 mg Propranolol HCl (Inderal La Cap*) 80 mg PO DAILY [facility] Last Admin: 10/26/17 07:58 Dose: 80 mg Vital Signs - 8 hr 10/26/17 10/26/17 10/26/17 01:05 02:26 07:13 Temperature 97.7 F Pulse Rate 59 Respiratory 15 16 18 Rate Blood Pressure 128/72 (mmHg) O2 Sat by Pulse 97 Oximetry 10/26/17 10/26/17 07:46 08:00 Temperature 98.4 F Pulse Rate 61 Respiratory 17 17 Rate Blood Pressure 140/82 (mmHg) O2 Sat by Pulse 97 Oximetry Oxygen Devices in Use Now: None Appearance: Pleasant morbid obese male sitting up in bed in [facility]. Eyes: No Scleral Icterus Ears/Nose/Mouth/Throat: Mucous Membranes Moist Neck: Trachea Midline Respiratory: Symmetrical Chest Expansion and Respiratory Effort, Clear to Auscultation Cardiovascular: RRR - Normal S1 and S2 Extremities: - - RLE ankle edema and erythema slightly worse than yesterday Neurological: Alert and Oriented x 3, NL Muscle Strength and Tone Result Diagrams: 10/25/17 06:22 10/26/17 08:29 Assess/Plan/Problems-Billing Assessment: Mr. Cat is a 57yo M with PMH of morbid obesity with BMI 50, HTN, HLD, type 2 DM, RA, anxiety, depression, who presented to ED with c/o right foot swelling, redness, and pain found to have cellulitis. - Patient Problems (1) Sepsis Comment: - Present on admission, with leukocytosis and tachycardia. - Source is cellulitis. (2) Cellulitis Comment: - Suspect streptococcal in nature, as there is no purulence - continue Cefazoline. - No open wounds at this time, just small scabs on his moore; also has onychomycosis. - WBC and CRP are trending down, but edema is still considerable. ID consult requested. (3) Gouty arthritis Comment: - Suspect gout is also playing a role on his clinical picture. - Responded well to Colchicine/Indomethacin, but his creatinine trended up. With discontinuation of indomethacin creatinine is improving. - With low dose prednisone, patient did not have clinical improvement as impressive as he did with indomethacin, and his glucose is trending up. Will request Rheumatlogy consult. - Continue Allopurinol. (4) LILI (acute kidney injury) Comment: - Likely secondary to NSAID use. - Creatinine trending down. (5) Type 2 diabetes mellitus Comment: - Continue Lantus and Lispro SS. - Referred to [facility]. (6) HTN (hypertension) Comment: - Continue Lisinopril, HCTZ, and Propranolol. (7) HLD (hyperlipidemia) Comment: - Continue Atorvastatin. (8) Morbid obesity Comment: - With BMI 50. Will benefit of diet and weight loss - referred to [facility]. (9) Nephrolithiasis, uric acid Comment: - Continue Allopurinol and potassium citrate. (10) rheumatoid arthritis Comment: - Continue MTX and Actemra as outpatient after infection is resolved. (11) DVT prophylaxis Comment: - SQ heparin. (12) Full code status Status and Disposition: Inpatient.
[2017-10-26 09:19] LABS: EGFR Non-African American 68.5 (>60)
--- NOTE | 2017-10-26 12:36 | CONS ---
CONSULTATION REPORT: DATE OF CONSULT: 10/26/17 REQUESTING PHYSICIAN: Dr. Mast. CONSULTING SERVICE: Infectious Disease. REASON FOR CONSULT: Right foot infection. IMPRESSION: 1. Sudden-onset right ankle pain with weightbearing and at rest and right lateral foot pain, significantly improved on Ancef and with gout therapy. After 5 days of treatment, he has almost no pain with weightbearing or range motion of the ankle. The ankle is nontender, there is no effusion. I discussed the case with Dr. Mast who is concerned that his ankle is not improving as much as he has noted. 2. Morbid obesity. 3. Type 2 insulin-dependent diabetes. 4. Rheumatoid arthritis, on methotrexate and Actemra. 5. Status post left hip arthroplasty. 6. Right second toe ulcer, July and August 2017, which has healed, at the time of wound culture grew methicillin-sensitive Staphylococcus aureus from the second toe. There is no ulcer now and there is no area of cellulitis involving that toe. RECOMMENDATIONS: Agree with Ancef 1 g every 8 hours as well as anti-gout treatment. We will follow his ankle and foot exam. We will obtain an MRI of the ankle. Follow C-reactive protein. HISTORY OF PRESENT ILLNESS: This is a 57-year-old man with diabetes, rheumatoid arthritis, admitted with right ankle pain with weightbearing that came on rapidly. He has not had anything like that in the past. Developed middle of last week without appreciating injury or any wound on the ankle, but now it was really hard to bear weight because of the pain. He had redness show up in the lateral ankle on foot at that time as well. Came into the hospital on 10/21/17, his white count was 21,000, he was started on ceftriaxone, had a dose of vancomycin and then Ancef. Since then, his white count is down to 10, 000. He was also started on colchicine and indomethacin. During that time, he has had steady improvement. The indomethacin was held because of slight increase in creatinine, which is back down again. The C-reactive protein was 21 on admission, peaked at 70s, down to 57 today. No other joints bothering him. He is able to walk around to the bathroom without much in the way of pain and can move his ankle around without pain. He does still have swelling in the ankle. No fevers, chills, or sweats today. PAST MEDICAL HISTORY: 1. Type 2 diabetes, insulin dependent. 2. Morbid obesity. 3. Hyperlipidemia. 4. Hypertension. 5. Rheumatoid arthritis, on methotrexate and Actemra. 6. Anxiety. 7. Depression. 8. Status post left hip arthroplasty. 9. History of cystoscopy and ureteral stent. MEDICATIONS: 1. Tylenol. 2. Albuterol. 3. Allopurinol. 4. Lipitor. 5. BuSpar. 6. Cefazolin 1 g every 8 hours. 7. Colchicine. 8. Hydrochlorothiazide. 9. Lisinopril. 10. Zofran. 11. Omeprazole. 12. Oxycodone and Tylenol as needed. 13. Paroxetine. 14. Prednisone 10 mg a day. 15. Propranolol. ALLERGIES: No known drug allergies. FAMILY HISTORY: No recurrent infections or tuberculosis. SOCIAL HISTORY: Lives in [place]. He works for the [employer]. He has no travel or sick contacts. REVIEW OF SYSTEMS: All negative except as noted above in the history of present illness for 14-point review. PHYSICAL EXAM: Vital Signs: Temperature is 37, heart rate 60, respiratory rate 17, blood pressure 140/80, oxygen saturation 97% on room air. In general, he is awake, not in distress. Neurologic: He is oriented x3. Follows all commands. He moves all of his extremities. Sensation is intact to light touch in both feet. HEENT: There is no conjunctival hemorrhage. Oropharynx is without lesions. Neck is supple without mass. Heart has regular rate and rhythm without murmurs, rubs, or gallops. Lungs are clear to auscultation bilaterally. Abdomen: Soft, nontender, nondistended. Bowel sounds present. Skin: There is no rash or splinter hemorrhages. Musculoskeletal: There is no spine tenderness to palpation. Right foot and ankle, there is mild edema without crepitus or fluctuance. There is no tenderness over the lateral or medial malleolus, though there is mild erythema inferior to the lateral malleolus down through the lateral foot. There is no pain with ankle flexion, extension, inversion, or eversion. LABORATORY DATA: White blood cell count 10.9, hemoglobin 14, platelets 141. Creatinine is 1.1. Please see impressions and recommendations as outlined above, which I have discussed with Dr. Mast. Thanks for asking me to see Mr. Cat in consultation. [id number]/CPS #: [id number] ROCKY
--- NOTE | 2017-10-26 16:05 | RAD ---
INDICATION: Right lower extremity cellulitis evaluate for tenosynovitis. COMPARISON: Comparison is made with a prior x-ray study of the right ankle from October 21, 2017. TECHNIQUE: Axial, sagittal and coronal T1 and T2-weighted images of the right ankle were obtained. FINDINGS: There is diffuse soft tissue swelling. In addition there are effusions within the talocrural and subtalar joints and bone marrow edema within the distal tibia, fibula, talus and calcaneus. The possibility of a septic arthritis and osteomyelitis cannot be excluded. No focal fluid collection or abscess is seen. The deltoid, calcaneal fibular, anterior and posterior tibiofibular and talofibular ligaments appear intact. There is mild thickening and increased signal intensity in the distal Achilles tendon consistent with tendinosis. There is a small effusion within the retrocalcaneal bursa. There is fluid in the synovial sheaths of the peroneus longus, brevis and posterior tibial tendons consistent with tenosynovitis. There is also fluid within the flexor hallucis longus tendon likely secondary to the joint effusion. There appears to be mild plantar fasciitis. The results of this exam were discussed with the referring clinician. IMPRESSION: 1. DIFFUSE SOFT TISSUE SWELLING SUGGESTIVE OF CELLULITIS. 2. EFFUSIONS WITHIN THE TALOCRURAL AND SUBTALAR JOINTS AND ADJACENT BONE MARROW EDEMA IN THE TIBIA, FIBULA, TALUS AND CALCANEUS. THESE FINDINGS ARE NONSPECIFIC ALTHOUGH WOULD RAISE THE POSSIBILITY OF SEPTIC ARTHRITIS AND OSTEOMYELITIS. 3. TENOSYNOVITIS INVOLVING THE PERONEAL AND POSTERIOR TIBIAL TENDONS. 4. MILD ACHILLES TENDINOSIS.
--- NOTE | 2017-10-26 16:13 | PN ---
Hospitalist Progress Note Date of Service: 10/26/17 HOSPITALIST ADDENDUM Although patient had some improvement with Cefazolin (less edema and erythema, resolution of leukocytosis) he still had pain and CRP was trending up to 69 ( but with ESR 20). Impression was of concomitant gout arthritis. He had significant improvement with indomethacin, was able to bear weight, but had creatinine increase, so he was switched to low dose prednisone as anti- inflammatory agent, but response was not as dramatic. As his symptoms persisted despite laboratory test improvement, ID consult was requested and Dr Olsen recommended MRI to r/o tenosynovitis. Called by Radiologist - MRI shows diffuse soft tissue swelling suggestive of cellulitis, effusions within the talocrural and subtalar joints and adjacent bone marrow edema in the tibia, fibula, talus, and calcaneus raising possibility of septic arthritis and osteomyelitis. Also tenosynovitis of the peroneal and posterior tibial tendons. Orthopedics consultation requested with Dr. Rodriguez - will keep NPO as he may need to go to OR. His EKG shows NSR at 76bpm with no ischemic changes. RCRI is 1 predicting 1% risk of cardiac complications. Patient is optimized in case he needs to go to OR for wash out.
[2017-10-26] MEDS ORDERED: HYDROmorphone INJ* 0.5 MG/0.5 ML SYRINGE IV ONE (16:55)
[2017-10-26 17:00] LABS: ABS Basophils 0.1 10^3/ul (0-0.2); ABS Eosinophils 0.1 10^3/ul (0-0.6); ABS Lymphocytes 1.2 10^3/ul (1.0-4.8); ABS Monocytes 1.5 10^3/ul (0-0.8); ABS Neutrophils 11.9 10^3/ul (1.5-7.7); ABS Nucleated RBC 0 10^3/ul; Eosinophil % 0.4 % (0-6); Hematocrit 45 % (42-52); Hemoglobin 15.3 g/dl (14.0-18.0); Lymphocyte % 8.1 % (25-47); Mean Corpuscular HGB Conc 34 g/dl (31-36); Mean Corpuscular Hemoglobin 32 pg (27-31); Mean Corpuscular Volume 96 fL (80-94); Mean Platelet Volume 7.5 um3 (7.4-10.4); Nucleated Red Blood Cells % 0.2; Platelet Count 187 10^3/ul (150-450); Red Blood Count 4.72 10^6/ul (4.00-5.40); Red Cell Distribution Width 14 % (10.5-15); White Blood Count 14.7 10^3/ul (3.5-10.8)
--- NOTE | 2017-10-26 18:59 | CONSULT ---
Consult Consult: Mr. Cat is a 57 year old man with a history of RA, Gout, and cellulitis who was admitted with significant pain, discomfort and swelling of the right ankle region. A workup revealed elevated inflammatory markers and his ankle MRI shows diffuse soft tissue swelling suggestive of cellulitis, effusions within the talocrural and subtalar joints and adjacent bone marrow edema in the tibia, fibula, talus, and calcaneus raising possibility of septic arthritis and osteomyelitis. Also tenosynovitis of the peroneal and posterior tibial tendons. A joint aspiration was done by ortho. I recommend holding both his Methotrexate and Actemra until an infection is ruled out. Consider holding Prednisone, if an infection is felt to be the case. Cultures from synovial fluid are pending. Will follow uric acid. Continue low dose colchicine.
[2017-10-26] MEDS ORDERED: Lidocaine 1% INJ* 10 MG/ML 30 ML SDV ONE (20:10)
--- NOTE | 2017-10-26 20:20 | PN ---
Progress Note - Progress Note Date of Service: 10/26/17 Note: H and P update Gram stain with 1+ cocci from aspirate. ESR 49. WBC elevated. Please d/c prednisone and rheum medications. Will take for I and D of R ankle emergently.
[2017-10-26] MEDS ORDERED: ceFAZolin 2 GM PREMIX (*) 2 GM/50 ML BAG IVPB ONE (20:32)
[2017-10-26] MEDS ORDERED: Propofol* 10 MG/ML 20 ML BTL IV PUSH ONE (20:57)
[2017-10-26] MEDS ORDERED: fentaNYL* 50 MCG/ML 2 ML VIAL (100 MCG VIAL) ONE (20:57)
[2017-10-26] MEDS ORDERED: Succinylcholine* 20 MG/ML 10 ML VIAL ONE (20:59)
[2017-10-26] MEDS ORDERED: Bupivacaine 0.25% SDV PF* 10 ML VIAL INJ ONE (21:26)
[2017-10-26] MEDS ORDERED: EPHEDrine (Pressors)* 50 MG/ML VIAL ONE (21:48)
[2017-10-26] MEDS ORDERED: Naloxone* 0.4 MG/ML 1 ML VIAL IV PRN (22:02)
[2017-10-26] MEDS ORDERED: fentaNYL* 50 MCG/ML 2 ML VIAL (100 MCG VIAL) IV PRN (22:02)
[2017-10-26] MEDS: Atorvastatin* 20 MG TAB PO SCH (22:59)
[2017-10-26] MEDS: ceFAZolin 2 GM PREMIX (*) 2 GM/50 ML BAG IVPB SCH (23:01)
[2017-10-26] MEDS: Morphine INJ* 2 MG/ML 1 ML SYRINGE (TWO MG - NEW SYRINGE VERSION) IV PRN (23:59)
[2017-10-27] MEDS: oxyCODONE/Acetamin 5/325 MG* TAB PO PRN ×3 (01:52→15:38)
--- NOTE | 2017-10-27 02:23 | CONS ---
CONSULTATION REPORT: DATE OF CONSULT: 10/26/17 CONSULTING PHYSICIAN: Dr. Mast. REASON FOR CONSULTATION: Swollen ankle. HISTORY OF PRESENT ILLNESS: Mr. Cat is a 57-year-old male with a long- standing history of rheumatoid arthritis. He was admitted with refractory pain , swelling, and discomfort in his right ankle and foot region. This progressed to the point that there is some redness along the outer aspect of his foot and he continues to have pain in his foot, which occurred rather abruptly. As part of his inpatient workup, an MRI of his ankle was done, which was concerning both for cellulitis and a septic joint. He therefore had an Orthopedic and Infectious Disease consultation and Orthopedics has already aspirated the ankle to see if there could be some kind of infection or other inflammatory process. In terms of his rheumatoid arthritis, he is followed primarily by our nurse practitioner, Tomás Pierre. He was last seen in the clinic on 07/07/17, in the rheumatology clinic. Of note, he does have a history of longstanding gout as well as rheumatoid arthritis and has been not only on methotrexate 6 weekly as well as Actemra, but also on allopurinol 300 mg daily. He has a history of nephrolithiasis, but he also has extensive involvement of his proximal interphalangeal joints with rheumatoid arthritis. He was initially treated in terms of his rheumatoid arthritis with methotrexate and Enbrel, started Actemra in February 2012 and had been doing more or less well on Actemra with decreased stiffness, but his rheumatoid arthritis flared and his methotrexate had been reduced in the past. Of note, he has also had a history of surgery for renal calculus with stent placement on the 04/21/14, with Dr. Francois. I last saw him in the clinic in July 2015, and again he is primarily being seen by Tomás Pierre. In terms of his more recent history, he does have a history of insulin- dependent diabetes mellitus in addition to the other rheumatoid arthritis and gout complications as noted above. He presented with 2 days history of worsening right foot pain and ankle swelling. 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 He has had no prior injury or twisting of his ankle, but he has noted progressive pain and discomfort to the point that it has been difficult to bear weight. Of note, he also has a history of cellulitis in the right lower extremity years ago and a remote history of uric acid kidney stones. He had been on allopurinol and had been adherent to his medications, but no recent history of gouty arthritis. He notes increased swelling and redness of his right ankle and foot to the point that he has not been able to bear weight on it, even though his blood sugars have been good. His pain has not significantly improved while he was in the hospital, which led to the above workup. As part of his initial evaluation, his white count was also found to be elevated at 21, 000. He himself denies any fever or chills at home, but he does have an elevated CRP consistent with an inflammatory process. He also had an ankle x- ray that revealed soft tissue swelling, but no evidence of osteomyelitis. He has had several areas of lower extremity cellulitis affecting the entire course of the moore, which improved on antibiotic. He has skipped immuno-suppressive therapy while having this evaluated. He also has a history of upper respiratory infections with strep and was prior treated with Augmentin in the past. He has been seeing Dr. Givens for his diabetic management and has had a nutritional consult. He has been on Trulicity and Humalog with meals. He has been following up with Nephrology for his renal calculus and he is monitoring his water intake. He continues to work at the [employer] in [place] and has had some stress at his job, but he has been walking up to 10,000 steps each day using a Fitbit to track steps. He continues to work out a planned fitness 2 times per week. PAST MEDICAL HISTORY: Also notable for: 1. Hypertension. 2. Hyperlipidemia. 3. Obesity. 4. Diabetes mellitus. PAST SURGICAL HISTORY: Includes left hip arthroplasty and left cystoscopy with ureteral stent placement. PAST PSYCHIATRIC HISTORY: Includes history of anxiety and depression. He also has a history of rheumatoid arthritis for which he has been on methotrexate. CURRENT MEDICATIONS: Include: 1. Allopurinol 300 mg daily. 2. Lipitor 20 mg at night. 3. BuSpar 10 mg t.i.d. 4. Diclofenac cream as needed. 5. Trulicity 0.75 mg subcu weekly. 6. Folic acid 1 mg daily. 7. Hydrochlorothiazide 12.5 mg daily. 8. [place] 1 tab every 4 hours as needed for pain. 9. Insulin SoloSTAR pen at 85 units subcu b.i.d. 10. Insulin Humalog subcu per sliding scale. 11. Lisinopril 40 mg daily. 12. Metformin 1500 mg in the evening and and 1000 mg in the morning. 13. Methotrexate 6 tablets weekly. 14. Paxil 40 mg daily. 15. Potassium citrate. 16. Inderal. 17. Actemra. ALLERGIES: Include no known drug allergies. FAMILY HISTORY: Negative for acute rheumatoid arthritis and lupus. REVIEW OF SYSTEMS: Constitutional: He denies any significant weight issues. Denies high fever. Eyes: Denies acute change in vision. ENT: Denies ulcerations in his mouth. Cardiovascular: Denies chest wall pain and pressure , chest tightness, and palpitations. Respiratory: Denies difficulty breathing. GI: Denies heartburn, cramping, diarrhea, or tarry stool. Musculoskeletal: As noted above. Skin: He has had some redness in the right lower extremity. Psychiatric: No recent depression. PHYSICAL EXAM: He is pleasant male accompanied by his . He is sitting up in no acute distress, but does complain of mild discomfort in the right ankle, which restricts him. His initial temperature is 97.1, blood pressure 162/90, pulse 85, respiratory rate of 18, O2 sats 96% on room air. HEENT: Normocephalic, atraumatic. Pupils equal, round, and reactive to light and accommodate. Sclerae was anicteric. Oropharynx was pink and moist. Neck: Supple. Trachea midline. Lymph: No adenopathy. Lungs: Clear to auscultation bilaterally. Heart revealed a regular rate and rhythm. Normal S1 and S2. No murmurs, rubs, or gallops. No S3 or S4. Abdomen: Soft, nontender with positive bowel sounds with morbid obesity. CVA: No CVA tenderness. Extremities : Minimal venous stasis changes bilaterally, right greater than left with mild edema. Musculoskeletal: He had some swelling of the ankle region, but fairly preserved range of motion. It is moderately tender along the lateral aspect of his malleolus. Skin: He had some erythema, which was mildly warm on the lateral aspect of the malleolar region. There was no crepitus or other skin changes. No gangrene. Sensation is intact. Neurologic: He was awake, oriented, and alert. No neurologic deficits. DIAGNOSTIC STUDIES/LAB DATA: He had a white count of 21,000, hemoglobin 16.5, hematocrit 48, and platelets of 130,000. Sodium was 133, potassium 4.5, chloride 96, CO2 27, BUN 23, creatinine 1.0, glucose of 172, lactic acid 2.1, CRP of 21. LFTs within normal limits. He has synovial aspiration, which is pending. His blood sugar is 216. He had an ankle MRI done at 12:39 today, which revealed diffuse soft tissue swelling suggestive of cellulitis with effusions within the talocrural and subtalar joint and adjacent bone marrow edema in the tibia, fibula, talus, and calcaneus. Findings were nonspecific, although would raise the possibility of a septic arthritis and osteomyelitis. He also had tenosynovitis involving the peroneal and posterior tibial tendons with mild Achilles' tendinosis. He had a white count of 14.7, which was up from 10.9 today and the sed rate is pending, but it was 20 on 10/23/17. He also had an EKG and electrocardiogram done by Dr. Haas. ASSESSMENT AND PLAN: Mr. Cat has a longstanding history of metabolic complications of obesity including diabetes and osteoarthritis in the setting of being immunosuppressed and rheumatoid arthritis with recurrent lower extremity infections, now admitted with cellulitis of right lower extremity. An MRI of the ankle region is concerning for either septic arthritis or osteomyelitis as well although nonspecific. Orthopedics has been consulted and a synovial aspiration was already done and is pending. His white count and C- reactive protein have been trending up. The initial impression was for gouty arthropathy and indeed he could have a gouty cellulitis. He did have some improvement with indomethacin, but his creatinine increased so he was switched to low-dose prednisone. At this time, he may need some kind of debridement of his ankle since there is a suspicion for septic process, but we will see what the synovial aspiration reveals from Orthopedics. I agree with holding his immunosuppressive therapy in terms of medication management. He is currently on colchicine twice daily schedule, which can be continued. If infection is felt to be the case then we should probably hold the prednisone. Indeed, we should hold his IV biologic as well as his methotrexate. We will continue to follow. [id number]/[facility] #: [id number] [facility]
--- NOTE | 2017-10-27 03:40 | CONS ---
CC: PCP, Pedro Pandey MD; Dr. Leroy.* CONSULTATION REPORT: DATE OF CONSULTATION: 10/26/17 DATE OF ADMISSION: 10/21/17 ATTENDING PHYSICIAN: Lola Rodriguez MD CHIEF COMPLAINT: Right ankle swelling and pain. HISTORY OF PRESENT ILLNESS: Briefly, Mr. Cat is 57-year-old gentleman who has a history of rheumatoid arthritis, diabetes insulin dependent, hyperlipidemia, hypertension, who has been having almost a week history of right foot pain. 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 He was unable to weight-bear. He was able to get about. He presented to the ER approximately 2 days after it started with lot of swelling and pain. He was unable to weight-bear at that time. He has a history of uric acid kidney stones. There was concern for it may be gout, he started to develop redness, erythema and oozing cellulitis. He did have colchicine, indomethacin responded quite well to that, but he is still having some discomfort and an MRI was ordered. An MRI was done that demonstrated fluid along the joint. He also has a history of rheumatoid arthritis and no history of surgery to the ankle; however, foot, he does have a hammertoe on the right toe. He does not have any open wounds, but he did have an open wound of the hammertoe approximately 3 months ago it was managed by a box cutter. He states that he has his diabetes now well under control and his recent A1cs were all below 7.5. He states that he has not had any nonhealing wounds and he can feel his feet. He does not have any neuropathy yet. He denies any numbness or tingling and he has only had low-grade temps since his admission, the highest of which was 99.7. The most recent temp was 99. He states that his pain has resolved quite a bit and he is able to move it more than he was before. He is still limping when he is walking to the bathroom, but overall he feels quite a bit better. PAST MEDICAL HISTORY: Significant for hypertension, hyperlipidemia, moderate obesity, insulin dependent diabetes, rheumatoid arthritis which he takes methotrexate and Actemra once monthly, history of anxiety depression. PAST SURGICAL HISTORY: Left hip total hip arthroplasty, left cystoscopy with ureteral stent placement. CURRENT MEDICATIONS: Include: 1. Tylenol. 2. Simethicone. 3. Albuterol. 4. Allopurinol. 5. Atorvastatin. 6. Buspirone. 7. Ancef. 8. Colchicine. 9. Dextrose. 10. Folic acid. 11. Heparin. 12. Hydrochlorothiazide. 13. Insulin. 14. Lantus. 15. Humalog. 16. Lisinopril. 17. Milk of magnesia. 18. Morphine. 19. Prilosec. 20. Zofran. 21. Percocet. 22. Paxil. 23. Potassium citrate. 24. Prednisone. 25. Propranolol. ALLERGIES: None. FAMILY HISTORY: Negative and noncontributory. SOCIAL HISTORY: He is , lives with his . 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 He lives in [place]. He is a nonsmoker, drinks alcohol rarely. He is a community ambulator. REVIEW OF SYSTEMS: A 14-point review of systems reviewed. The patient is significant for low-grade temps, right foot and ankle swelling and pain initial inability to weight-bear and adequate weight bear. No chest pain, shortness of breath. Otherwise remainder of the system is negative. PHYSICAL EXAM: He is in no acute distress. He is well-developed and well nourished. He is alert and oriented x3. He has pleasant mood and normal affect. He is lying comfortably in the bed. Vitals: Temperature of 99.0 at 11: 20, pulse of 58, respiratory rate 20, O2 saturation 95% on room air, blood pressure 155/69. He is responding comfortably. His abdomen is soft and nontender. Heart has regular rate and rhythm. Examination of right foot demonstrates 1+ pitting edema about his ankle. He is able to dorsiflex, plantarflex with some discomfort. He has erythema mostly about the anterolateral aspect of the ankle and foot. He is sensate to light touch about the first toe web space. On medial dorsal and plantar foot he has 2+ PT pulse, DP pulse is 1+, but it is palpable. He is able to flex in his toes. He is tender about the erythema, but not specifically tender medially. It is difficult to assess for an effusion. His calf is soft and nontender. He has good strength in dorsiflexion and plantarflexion. DIAGNOSTIC STUDIES/LAB DATA: MRI was reviewed that demonstrates soft tissue swelling and edema as well as a joint effusion in the talocrural and subtalar joint with some bone marrow edema. There is concern for possible septic arthritis or osteomyelitis. He also has some tenosynovitis. DIAGNOSTIC STUDIES/LAB DATA: Labs obtained today demonstrate white count of 14.7, hematocrit of 45, platelet count of 187. ESR is currently pending. Sodium is 136, potassium 4.4, chloride of 100, carbon dioxide 30, BUN 35, creatinine 1.1, glucose 109, CRP of 57.8, which is down from 75 to 71.91 which was obtained on 10/24/17. His previous ESR was 20 and that was on 10/23/17. ASSESSMENT AND PLAN: He is immunocompromised. He has rheumatoid arthritis. He is also diabetic. He does have good sensation and apparently appropriate A1c 's. His most recent A1c was on 07/09/17 which was 7.2, 05/22/15 it was 9.7. He has right foot and ankle cellulitis and swelling at this point and an MRI that shows a concern for an effusion with possible septic arthritis. At this point, we talked about the risks and benefits. The patient's symptoms have improved; however, he is immunocompromised. His white count is a little bit elevated at this point. I talked about aspiration to find out if he actually has the septic joint. We used the IV ultrasound to try to find a loculated fluid collection about the joint where the anterior medial portal would be and after an informed consent was obtained, a verbal consent was obtained, an 18- guage Tuohy was used to withdraw approximately a cc of bloody cloudy fluid. The sample was then taken down to the labs and Gram-stain culture as well as cell count and crystals are pending, their orders sent. We did talk about if he does have positive Gram-stain or elevated cell count, I would take him to the OR this evening to wash him out and open I and D. This was verbalized and discussed with his doctor, Dr. Mast and the patient verbalized understanding. He is n.p.o. We will continue to monitor. [id number]/[facility] #: [id number] [facility]
[2017-10-27] MEDS: Heparin VIAL(*) 5000 UNITS/ML VIAL (FIVE THOUSAND) SUBCUT SCH ×3 (05:40→22:33)
[2017-10-27] MEDS: Insulin GLARGINE(*) 1 UNITS UNIT SUBCUT SCH ×2 (05:41→17:04)
[2017-10-27] MEDS: ceFAZolin 2 GM PREMIX (*) 2 GM/50 ML BAG IVPB SCH ×3 (05:44→22:39)
[2017-10-27] MEDS: Insulin LISPRO* 1 UNITS UNIT SUBCUT SCH ×4 (07:33→22:34)
[2017-10-27] MEDS: Allopurinol TAB* 300 MG PO SCH (09:19)
[2017-10-27] MEDS: Folic Acid TAB* 1 MG PO SCH (09:19)
[2017-10-27] MEDS: PARoxetine HCL TAB* 20 MG PO SCH (09:19)
[2017-10-27] MEDS: busPIRone TAB* 10 MG PO SCH ×3 (09:19→22:28)
[2017-10-27] MEDS: Propranolol LA CAP* 80 MG PO SCH (09:19)
[2017-10-27] MEDS: Lisinopril TAB* 10 MG PO SCH (09:19)
[2017-10-27] MEDS: Omeprazole CAP* 20 MG PO SCH (09:20)
[2017-10-27] MEDS: Colchicine* 0.6 MG TAB PO SCH ×2 (09:21→22:29)
[2017-10-27] MEDS: PTO:Potassium Citrate (NF) 10 MEQ TAB PO SCH ×3 (09:21→22:29)
[2017-10-27] MEDS: Hydrochlorothiazide TAB* 25 MG PO SCH (09:25)
--- NOTE | 2017-10-27 10:41 | PN ---
Subjective Date of Service: 10/27/17 Interval History: Went to the OR with Dr. Rodriguez last night for a right ankle washout. Cultures reported as staph, MRSA negative. His is at the bedside. His pain is controlled. He has been afebrile. He walked to the bathroom. Family History: Unchanged from Admission Social History: Unchanged from Admission Past Medical History: Unchanged from Admission Objective Active Medications: Acetaminophen (Tylenol Tab*) 975 mg PO Q6H PRN PRN Reason: FEVER/PAIN Al Hydrox/Mg Hydrox/Simethicone (Maalox Plus*) 30 ml PO Q6H PRN PRN Reason: INDIGESTION Albuterol (Ventolin 2.5 Mg/3 Ml Neb.Alejandrina*) 2.5 mg INH RT.D0OH-ALPJS AWAKE PRN PRN Reason: sob/wheezing Allopurinol (Zyloprim Tab*) 300 mg PO DAILY [facility] Last Admin: 10/27/17 09:19 Dose: 300 mg Atorvastatin Calcium (Lipitor*) 20 mg PO 2100 [facility] Last Admin: 10/26/17 22:59 Dose: 20 mg Buspirone HCl (Buspar Tab*) 10 mg PO TID [facility] Last Admin: 10/27/17 09:19 Dose: 10 mg Colchicine (Colcrys*) 0.6 mg PO BID [facility] Last Admin: 10/27/17 09:21 Dose: 0.6 mg Dextrose (D50w Syringe 50 Ml*) 12.5 gm IV PUSH .FOR FS < 60 - SS PRN PRN Reason: FS < 60 Folic Acid (Folvite Tab*) 1 mg PO DAILY [facility] Last Admin: 10/27/17 09:19 Dose: 1 mg Heparin Sodium (Porcine) (Heparin Vial(*)) 5,000 units SUBCUT Q8HR [facility] Last Admin: 10/27/17 05:40 Dose: 5,000 units Hydrochlorothiazide (Hydrodiuril Tab*) 12.5 mg PO DAILY [facility] Last Admin: 10/27/17 09:25 Dose: 12.5 mg Cefazolin Sodium/Dextrose (Kefzol 2 Gm Premix(*)) 2 gm in 50 mls @ 100 mls/hr IVPB Q8H [facility] Last Admin: 10/27/17 05:44 Dose: 100 mls/hr Insulin Glargine (Lantus(*)) 75 units SUBCUT Q12H [facility] Last Admin: 10/27/17 05:41 Dose: 75 unit Insulin Human Lispro (Humalog*) 0 units SUBCUT ACHS [facility]; Protocol Last Admin: 10/27/17 07:33 Dose: Not Given Lisinopril (Prinivil Tab*) 40 mg PO DAILY [facility] Last Admin: 10/27/17 09:19 Dose: 40 mg Magnesium Hydroxide (Milk Of Magnesia Liq*) 30 ml PO Q4H PRN PRN Reason: CONSTIPATION Morphine Sulfate (Morphine Inj (Syringe)*) 4 mg IV Q4H PRN PRN Reason: PAIN Last Admin: 10/26/17 23:59 Dose: 4 mg Omeprazole (Prilosec Cap*) 20 mg PO 729 [facility] Last Admin: 10/27/17 09:20 Dose: 20 mg Ondansetron HCl (Zofran Inj*) 4 mg IV Q4H PRN PRN Reason: NAUSEA/VOMITING Oxycodone/Acetaminophen (Percocet 5/325 Tab*) 2 tab PO Q6H PRN PRN Reason: Pain Last Admin: 10/27/17 09:20 Dose: 2 tab Paroxetine HCl (Paxil Tab*) 40 mg PO DAILY [facility] Last Admin: 10/27/17 09:19 Dose: 40 mg Potassium Citrate (Urocit-K 10 (Nf)) 20 meq PO TID [facility] Last Admin: 10/27/17 09:21 Dose: 20 meq Propranolol HCl (Inderal La Cap*) 80 mg PO DAILY [facility] Last Admin: 10/27/17 09:19 Dose: 80 mg Vital Signs - 8 hr 10/27/17 10/27/17 10/27/17 02:56 03:27 04:40 Temperature 97.6 F Pulse Rate 68 Respiratory 20 16 Rate Blood Pressure 148/77 (mmHg) O2 Sat by Pulse 96 96 Oximetry 10/27/17 10/27/17 08:32 09:20 Temperature 97.5 F Pulse Rate 65 Respiratory 17 16 Rate Blood Pressure 155/84 (mmHg) O2 Sat by Pulse 98 Oximetry Oxygen Devices in Use Now: None Appearance: alert, no distress, well appearing Eyes: No Scleral Icterus Ears/Nose/Mouth/Throat: NL Teeth, Lips, Gums Neck: NL Appearance and Movements; NL JVP Respiratory: Symmetrical Chest Expansion and Respiratory Effort Cardiovascular: NL Sounds; No Murmurs; No JVD, RRR Abdominal: NL Sounds; No Tenderness; No Distention Lymphatic: No Cervical Adenopathy Extremities: - - right ankle wrapped in ellen. + active and passive ankle range of motion. sensation in tact. scattered erythematous/purple macules over both shins. Neurological: Alert and Oriented x 3 Result Diagrams: 10/26/17 16:51 10/26/17 08:29 Microbiology and Other Data: Microbiology 10/26/17 21:20 Skin and Soft Tissue MRSA/MSSA (PCR - Final Foot Right Mrsa Negative S.aureus Positive Gram Stain - Final 10/26/17 18:33 Gram Stain - Final Joint Fluid(Synovial) - Ankle Right Skin and Soft Tissue MRSA/MSSA (PCR - Final Mrsa Negative S.aureus Positive Assess/Plan/Problems-Billing Assessment: Mr. Cat is a 57yo M with PMH of morbid obesity with BMI 50, HTN, HLD, type 2 DM, RA, anxiety, depression, who presented to ED with right foot swelling, redness, and pain found to have cellulitis. - Patient Problems (1) Septic joint Current Visit: Yes Status: Acute Comment: POD #[address] Ahuja continue cefazolin Dr. Olsen following; suspect he will need IV antibiotics for some time before po antibiotics (2) Cellulitis Current Visit: Yes Status: Acute Code(s): L03.90 - CELLULITIS, UNSPECIFIED SNOMED Code(s): 323923711 Comment: continue cefazolin (3) HTN (hypertension) Current Visit: Yes Status: Acute Code(s): I10 - ESSENTIAL (PRIMARY) HYPERTENSION SNOMED Code(s): 65526438 Comment: Continue Lisinopril, HCTZ, and Propranolol. (4) Nephrolithiasis, uric acid Current Visit: Yes Status: Acute Code(s): N20.0 - CALCULUS OF KIDNEY SNOMED Code(s): 966077694 Comment: Continue Allopurinol and potassium citrate. (5) Sepsis Current Visit: Yes Status: Acute Comment: Present on admission, now resolved. Source is cellulitis + septic joint. (6) Type 2 diabetes mellitus Current Visit: Yes Status: Acute Comment: - Continue Lantus and Lispro SS. - Referred to [facility]. Status and Disposition: Inpatient.
--- NOTE | 2017-10-27 11:26 | PN ---
Progress Note - Progress Note Date of Service: 10/27/17 SOAP: Subjective: [] Patient was seen at bedside today. He is feeling well and has been afebrile. He has walked to the bathroom and is able to move his right ankle without pain. His right ankle is less painful than it was prior to washout. Denies chest pain , shortness of breath, dizziness. Objective: [] General: Well appearing, NAD RLE: Right ankle dressing CDI. Able to dorsiflex and plantarflex ankle, able to wiggle toes. No erythema proximal or distal to dressing. Calves are supple and nontender. Assessment: [] Septic right ankle s/p washout 10/27 Dr. Rodriguez Plan: [] WBAT Continue antibiotics - cefazolin. Ortho will continue to follow, dressing change tomorrow. Patient knows to report any worsening pain, redness, fever, chills or concerns. Vital Signs Temp 97.5 F 10/27/17 08:32 Pulse 65 10/27/17 08:32 Resp 18 10/27/17 11:10 BP 155/84 10/27/17 08:32 Pulse Ox 98 10/27/17 08:32 Intake & Output 10/26/17 10/27/17 10/27/17 18:59 06:59 18:59 Intake Total 1680 660 Output Total 20 Balance 1680 640 Weight 350 lb Intake: IV Fluids 660 ABX - CEFAZOLIN 200 NS (0.9%) 60 lr 400 Oral 1680 0 Output: Urine 0 Estimated Blood Loss 20 Other: # Bowel Movements 1 0 # Voids 0 Laboratory Last Values WBC 14.7 10^3/ul (3.5-10.8) H 10/26/17 16:51 RBC 4.72 10^6/ul (4.00-5.40) 10/26/17 16:51 Hgb 15.3 g/dl (14.0-18.0) 10/26/17 16:51 Hct 45 % (42-52) 10/26/17 16:51 MCV 96 fL (80-94) H 10/26/17 16:51 MCH 32 pg (27-31) H 10/26/17 16:51 MCHC 34 g/dl (31-36) 10/26/17 16:51 RDW 14 % (10.5-15) 10/26/17 16:51 Plt Count 187 10^3/ul (150-450) 10/26/17 16:51 MPV 7.5 um3 (7.4-10.4) 10/26/17 16:51 Neut % (Auto) 81.0 % (38-83) 10/26/17 16:51 Lymph % (Auto) 8.1 % (25-47) L 10/26/17 16:51 [place] % (Auto) 10.0 % (0-7) H 10/26/17 16:51 Eos % (Auto) 0.4 % (0-6) 10/26/17 16:51 Baso % (Auto) 0.5 % (0-2) 10/26/17 16:51 Absolute Neuts (auto) 11.9 10^3/ul (1.5-7.7) H 10/26/17 16:51 Absolute Lymphs (auto) 1.2 10^3/ul (1.0-4.8) 10/26/17 16:51 Absolute Monos (auto) 1.5 10^3/ul (0-0.8) H 10/26/17 16:51 Absolute Eos (auto) 0.1 10^3/ul (0-0.6) 10/26/17 16:51 Absolute Basos (auto) 0.1 10^3/ul (0-0.2) 10/26/17 16:51 Absolute Nucleated RBC 0 10^3/ul 10/26/17 16:51 Nucleated RBC % 0.2 10/26/17 16:51 ESR 49 mm/Hr (0-20) H 10/26/17 16:51 Sodium 136 mmol/L (135-145) 10/26/17 08:29 Potassium 4.4 mmol/L (3.5-5.0) 10/26/17 08:29 Chloride 100 mmol/L (101-111) L 10/26/17 08:29 Carbon Dioxide 30 mmol/L (22-32) 10/26/17 08:29 Anion Gap 6 mmol/L (2-11) 10/26/17 08:29 BUN 35 mg/dL (6-24) H 10/26/17 08:29 Creatinine 1.10 mg/dL (0.67-1.17) 10/26/17 08:29 Est GFR ( Amer) 82.9 (>60) 10/26/17 08:29 Est GFR (Non-Af Amer) 68.5 (>60) 10/26/17 08:29 BUN/Creatinine Ratio 31.8 (8-20) H 10/26/17 08:29 Glucose 109 mg/dL (70-100) H 10/26/17 08:29 POC Glucose (mg/dL) 89 mg/dL (70-100) 10/27/17 07:23 Lactic Acid 2.1 mmol/L (0.5-2.0) H* 10/21/17 11:20 Uric Acid 5.1 mg/dL (4.4-7.6) 10/26/17 16:48 Calcium 8.7 mg/dL (8.6-10.3) 10/26/17 08:29 Total Bilirubin 1.00 mg/dL (0.2-1.0) 10/21/17 11:20 AST 29 U/L (13-39) 10/21/17 11:20 ALT 29 U/L (7-52) 10/21/17 11:20 Alkaline Phosphatase 95 U/L (34-104) 10/21/17 11:20 C-Reactive Protein 57.87 mg/L (<8.01) H 10/26/17 08:29 Total Protein 7.2 g/dL (6.4-8.9) 10/21/17 11:20 Albumin 4.1 g/dL (3.2-5.2) 10/21/17 11:20 Globulin 3.1 g/dL (2-4) 10/21/17 11:20 Albumin/Globulin Ratio 1.3 (1-3) 10/21/17 11:20 Fluid Source Synovial fluid 10/26/17 18:33 Fluid Volume 1 mL 10/26/17 18:33 Fluid Color Red 10/26/17 18:33 Fluid Appearance Bloody 10/26/17 18:33 Fluid WBC 99109 /mcL (0-887690) 10/26/17 18:33 Fluid RBC 24451 /mcL 10/26/17 18:33 Fluid Tot Cell Count 100 10/26/17 18:33 Fluid Neutrophils 88 % 10/26/17 18:33 Fluid Lymphocytes 6 % 10/26/17 18:33 Fluid Monocytes 6 % 10/26/17 18:33 Fluid Nucleated RBCs 1 10/26/17 18:33 Fluid Cell Count Rvw By 10/26/17 18:33 Fluid Crystals None seen (None Seen) 10/26/17 18:34 Vancomycin Trough 15.6 mcg/mL 10/22/17 09:39
--- NOTE | 2017-10-27 13:35 | PN ---
Progress Note - Progress Note Date of Service: 10/27/17 SOAP: Subjective: CC: septic arthritis HPI: 57 year old man with right lateral foot cellulitis and septic arthritis of ankle s/p I&D, feels well, no fever rash or diarrhea. Objective: Vital Signs Temp 36.9 C 10/27/17 11:13 Pulse 64 10/27/17 11:13 Resp 18 10/27/17 11:13 BP 128/54 10/27/17 11:13 Pulse Ox 98 10/27/17 11:13 Intake & Output 10/26/17 10/27/17 10/27/17 18:59 06:59 18:59 Intake Total 1680 660 360 Output Total 20 Balance 1680 640 360 Weight 350 lb Intake: IV Fluids 660 ABX - CEFAZOLIN 200 NS (0.9%) 60 lr 400 Oral 1680 0 360 Output: Urine 0 Estimated Blood Loss 20 Other: # Bowel Movements 1 0 # Voids 0 Gen:awake, no distress HEENT: no thrush Heart:RRR no murmur Lungs:CTA BL Abd:+BS NTND soft Skin: No rash MSK: R ankle bandaged Laboratory Results - last 24 hr 10/26/17 10/26/17 10/26/17 16:48 16:51 17:54 WBC 14.7 H RBC 4.72 Hgb 15.3 Hct 45 MCV 96 H MCH 32 H MCHC 34 RDW 14 Plt Count 187 MPV 7.5 Neut % (Auto) 81.0 Lymph % (Auto) 8.1 L [place] % (Auto) 10.0 H Eos % (Auto) 0.4 Baso % (Auto) 0.5 Absolute Neuts (auto) 11.9 H Absolute Lymphs (auto) 1.2 Absolute Monos (auto) 1.5 H Absolute Eos (auto) 0.1 Absolute Basos (auto) 0.1 Absolute Nucleated RBC 0 Nucleated RBC % 0.2 ESR 49 H POC Glucose (mg/dL) 216 H Uric Acid 5.1 Fluid Source Fluid Volume Fluid Color Fluid Appearance Fluid WBC Fluid RBC Fluid Tot Cell Count Fluid Neutrophils Fluid Lymphocytes Fluid Monocytes Fluid Nucleated RBCs Fluid Cell Count Rvw By Fluid Crystals 10/26/17 10/26/17 10/26/17 18:33 18:34 19:56 WBC RBC Hgb Hct MCV MCH MCHC RDW Plt Count MPV Neut % (Auto) Lymph % (Auto) [place] % (Auto) Eos % (Auto) Baso % (Auto) Absolute Neuts (auto) Absolute Lymphs (auto) Absolute Monos (auto) Absolute Eos (auto) Absolute Basos (auto) Absolute Nucleated RBC Nucleated RBC % ESR POC Glucose (mg/dL) 175 H Uric Acid Fluid Source Synovial fluid Fluid Volume 1 Fluid Color Red Fluid Appearance Bloody Fluid WBC 15612 Fluid RBC 66525 Fluid Tot Cell Count 100 Fluid Neutrophils 88 Fluid Lymphocytes 6 Fluid Monocytes 6 Fluid Nucleated RBCs 1 Fluid Cell Count Rvw By Fluid Crystals None seen 10/26/17 10/27/17 10/27/17 21:55 07:23 11:38 WBC RBC Hgb Hct MCV MCH MCHC RDW Plt Count MPV Neut % (Auto) Lymph % (Auto) [place] % (Auto) Eos % (Auto) Baso % (Auto) Absolute Neuts (auto) Absolute Lymphs (auto) Absolute Monos (auto) Absolute Eos (auto) Absolute Basos (auto) Absolute Nucleated RBC Nucleated RBC % ESR POC Glucose (mg/dL) 152 H 89 216 H Uric Acid Fluid Source Fluid Volume Fluid Color Fluid Appearance Fluid WBC Fluid RBC Fluid Tot Cell Count Fluid Neutrophils Fluid Lymphocytes Fluid Monocytes Fluid Nucleated RBCs Fluid Cell Count Rvw By Fluid Crystals Assessment: 1. MSSA septic arthritis right ankle with cellulitis s/p I&D 2. Rheumatoid arthritis 3. morbid obesity Plan: 1 ancef 2 gm Q8hrs while here; ok for picc and daptomycin 1 gm IV daily to finish 28 days at infusion center with weekly cbc, cmp, crp, ck 35 minutes floor time >50% face to face with patient and discussing abx plans and monitoring of ankle infection
--- NOTE | 2017-10-27 18:39 | PN ---
Subjective - Subjective Date of Service: 10/27/17 - swollen ankle History: Overall Mr Cat is feeling better; his ankle is wrapped and he denied pain; there is no extension of his pain to any other joint Active Problems: Active Problems rheumatoid arthritis (Active) - Continue MTX and Actemra as outpatient after infection is resolved. LILI (acute kidney injury) (Acute) N17.9 - Likely secondary to NSAID use. - Creatinine trending down. Cellulitis (Acute) L03.90 continue cefazolin DVT prophylaxis (Acute) [id number] - SQ heparin. Full code status (Acute) Z78.9 Gouty arthritis (Acute) M10.9 - Suspect gout is also playing a role on his clinical picture. - Responded well to Colchicine/Indomethacin, but his creatinine trended up. With discontinuation of indomethacin creatinine is improving. - With low dose prednisone, patient did not have clinical improvement as impressive as he did with indomethacin, and his glucose is trending up. Will request Rheumatlogy consult. - Continue Allopurinol. HLD (hyperlipidemia) (Acute) E78.5 - Continue Atorvastatin. HTN (hypertension) (Acute) I10 Continue Lisinopril, HCTZ, and Propranolol. Morbid obesity (Acute) E66.01 - With BMI 50. Will benefit of diet and weight loss - referred to [facility]. Nephrolithiasis, uric acid (Acute) N20.0 Continue Allopurinol and potassium citrate. Sepsis (Acute) Present on admission, now resolved. Source is cellulitis + septic joint. Septic arthritis of ankle (Acute) M00.9 Septic joint (Acute) POD #[address] Ahuja continue cefazolin Dr. Olsen following ; suspect he will need IV antibiotics for some time before po antibiotics Type 2 diabetes mellitus (Acute) - Continue Lantus and Lispro SS. - Referred to [facility]. Current Medications: Current Medications Acetaminophen (Tylenol Tab*) 975 mg PO Q6H PRN PRN Reason: FEVER/PAIN Al Hydrox/Mg Hydrox/Simethicone (Maalox Plus*) 30 ml PO Q6H PRN PRN Reason: INDIGESTION Albuterol (Ventolin 2.5 Mg/3 Ml Neb.Alejandrina*) 2.5 mg INH [id number] AWAKE PRN PRN Reason: sob/wheezing Allopurinol (Zyloprim Tab*) 300 mg PO DAILY IRASEMA Last Admin: 10/27/17 09:19 Dose: 300 mg Atorvastatin Calcium (Lipitor*) 20 mg PO 2100 [facility] Last Admin: 10/26/17 22:59 Dose: 20 mg Buspirone HCl (Buspar Tab*) 10 mg PO TID [facility] Last Admin: 10/27/17 12:39 Dose: 10 mg Colchicine (Colcrys*) 0.6 mg PO BID [facility] Last Admin: 10/27/17 09:21 Dose: 0.6 mg Dextrose (D50w Syringe 50 Ml*) 12.5 gm IV PUSH .FOR FS < 60 - SS PRN PRN Reason: FS < 60 Folic Acid (Folvite Tab*) 1 mg PO DAILY [facility] Last Admin: 10/27/17 09:19 Dose: 1 mg Heparin Sodium (Porcine) (Heparin Vial(*)) 5,000 units SUBCUT Q8HR [facility] Last Admin: 10/27/17 12:38 Dose: 5,000 units Hydrochlorothiazide (Hydrodiuril Tab*) 12.5 mg PO DAILY [facility] Last Admin: 10/27/17 09:25 Dose: 12.5 mg Cefazolin Sodium/Dextrose (Kefzol 2 Gm Premix(*)) 2 gm in 50 mls @ 100 mls/hr IVPB Q8H [facility] Last Admin: 10/27/17 13:53 Dose: 100 mls/hr Insulin Glargine (Lantus(*)) 75 units SUBCUT Q12H [facility] Last Admin: 10/27/17 17:04 Dose: 75 unit Insulin Human Lispro (Humalog*) 0 units SUBCUT ACHS [facility]; Protocol Last Admin: 10/27/17 17:04 Dose: 6 units Lisinopril (Prinivil Tab*) 40 mg PO DAILY [facility] Last Admin: 10/27/17 09:19 Dose: 40 mg Magnesium Hydroxide (Milk Of Magnesia Liq*) 30 ml PO Q4H PRN PRN Reason: CONSTIPATION Morphine Sulfate (Morphine Inj (Syringe)*) 4 mg IV Q4H PRN PRN Reason: PAIN Last Admin: 10/26/17 23:59 Dose: 4 mg Omeprazole (Prilosec Cap*) 20 mg PO 0730 [facility] Last Admin: 10/27/17 09:20 Dose: 20 mg Ondansetron HCl (Zofran Inj*) 4 mg IV Q4H PRN PRN Reason: NAUSEA/VOMITING Oxycodone/Acetaminophen (Percocet 5/325 Tab*) 2 tab PO Q6H PRN PRN Reason: Pain Last Admin: 10/27/17 15:38 Dose: 2 tab Paroxetine HCl (Paxil Tab*) 40 mg PO DAILY [facility] Last Admin: 10/27/17 09:19 Dose: 40 mg Potassium Citrate (Urocit-K 10 (Nf)) 20 meq PO TID [facility] Last Admin: 10/27/17 12:39 Dose: 20 meq Propranolol HCl (Inderal [place]*) 80 mg PO DAILY [facility] Last Admin: 10/27/17 09:19 Dose: 80 mg - Review of Systems Constitutional Symptoms: No: Weight Gain, Fever Dermatology: Skin Lesions: Yes - cellulitis is improving Pulmonary: Positive: Normal Cardiology: Positive: Normal Gastroenterology: Positive: Normal Musculoskeletal: Positive: Joint Stiffness Neurology: Positive: Normal Allergic/Immunologic: Positive: Immunocompromise Home Medications: Home Medications Medication Instructions Recorded Confirmed Type Tocilizumab* [Actemra*] 640 mg IV MONTHLY 04/20/14 10/21/17 History metFORMIN* [Glucophage*] 1,000 mg PO QAM 04/20/14 10/21/17 History metFORMIN* [Glucophage*] 1,500 mg PO QPM 04/20/14 10/21/17 History Potassium Citrate (NF) [Urocit-K 2 tab PO TID 08/10/14 10/21/17 History 10 (NF)] Allopurinol TAB* [Zyloprim TAB*] 300 mg PO DAILY 08/09/15 10/21/17 History Diclofenac 1% GEL (NF) [Voltaren 1 applic TOPICAL DAILY PRN 08/09/15 10/21/17 History 1% GEL (NF)] Atorvastatin* [Lipitor*] 20 mg PO 2100 09/03/17 10/21/17 History Dulaglutide [Trulicity] 0.75 mg SQ WEEKLY 09/03/17 10/21/17 History Folic Acid TAB* [Folvite TAB*] 1 mg PO DAILY 09/03/17 10/21/17 History Hydrochlorothiazide TAB* 12.5 mg PO DAILY 09/03/17 10/21/17 History [Hydrodiuril TAB*] Hydrocodone/Acetaminophen 1 tab PO Q4H PRN 09/03/17 10/21/17 History [Hydrocodone Bitartrate/AC] Insulin Glargine (Nf) [Toujeo 85 unit SUBCUT BID 09/03/17 10/21/17 History Solostar Pen (NF)] Insulin Lispro [Humalog Kwikpen] 15 unit SUBCUT TID WITH MEALS 09/03/17 History Lisinopril 40 mg PO DAILY 09/03/17 10/21/17 History Methotrexate TAB* 6 tab PO WEEKLY 09/03/17 10/21/17 History PARoxetine HCL TAB* [Paxil TAB*] 40 mg PO DAILY 09/03/17 10/21/17 History busPIRone TAB* [Buspar TAB*] 10 mg PO TID 09/03/17 10/21/17 History Propranolol LA CAP* [Inderal LA 80 mg PO DAILY 10/21/17 10/21/17 History CAP*] Allergies: Allergies Allergy/AdvReac Type Severity Reaction Status Date / Time No Known Allergies Allergy Verified 10/21/17 10:56 Objective - Vital Signs Vital Signs: Vital Signs 10/26/17 10/26/17 10/26/17 19:21 20:00 21:51 Temperature 97.7 F 96.8 F Pulse Rate 63 85 Respiratory 17 18 16 Rate Blood Pressure 155/75 152/96 (mmHg) O2 Sat by Pulse 98 98 Oximetry 10/26/17 10/26/17 10/26/17 21:52 21:56 22:00 Temperature Pulse Rate 83 82 80 Respiratory Rate Blood Pressure 152/96 171/89 (mmHg) O2 Sat by Pulse 98 99 99 Oximetry 10/26/17 10/26/17 10/26/17 22:01 22:16 22:43 Temperature 98.8 F Pulse Rate 78 67 69 Respiratory 24 23 20 Rate Blood Pressure 139/75 143/77 163/85 (mmHg) O2 Sat by Pulse 94 97 97 Oximetry 10/26/17 10/26/17 10/27/17 23:40 23:59 00:49 Temperature 98.5 F 98.0 F Pulse Rate 65 64 Respiratory 16 18 20 Rate Blood Pressure 136/65 158/79 (mmHg) O2 Sat by Pulse 97 96 Oximetry 10/27/17 10/27/17 10/27/17 01:00 01:52 02:56 Temperature Pulse Rate Respiratory 16 18 Rate Blood Pressure (mmHg) O2 Sat by Pulse 96 Oximetry 10/27/17 10/27/17 10/27/17 03:27 04:40 08:00 Temperature 97.6 F Pulse Rate 68 Respiratory 20 16 18 Rate Blood Pressure 148/77 (mmHg) O2 Sat by Pulse 96 98 Oximetry 10/27/17 10/27/17 10/27/17 08:32 09:20 11:10 Temperature 97.5 F Pulse Rate 65 Respiratory 17 16 18 Rate Blood Pressure 155/84 (mmHg) O2 Sat by Pulse 98 Oximetry 10/27/17 10/27/17 10/27/17 11:13 15:20 15:38 Temperature 98.4 F 97.5 F Pulse Rate 64 62 Respiratory 18 19 18 Rate Blood Pressure 128/54 131/67 (mmHg) O2 Sat by Pulse 98 96 Oximetry 10/27/17 17:05 Temperature Pulse Rate Respiratory 18 Rate Blood Pressure (mmHg) O2 Sat by Pulse Oximetry - Intake and Output Intake and Output: Intake & Output 10/25/17 10/26/17 10/27/17 10/28/17 06:59 06:59 06:59 06:59 Intake Total 2170 1935 2340 950 Output Total 0 20 Balance 2170 1935 2320 950 Weight 350 lb Intake: IV Fluids 120 180 660 ABX - CEFAZOLIN 50 100 200 NS (0.9%) 70 80 60 lr 400 IVPB 130 55 ABX - CEFAZOLIN 130 55 Oral 1920 1700 1680 950 Output: Urine 0 0 Estimated Blood Loss 20 Other: Date of Last Bowel unknown Movement # Bowel Movements 1 0 0 Estimated Stool Amount Large # Voids 1 0 2 ADLs: Meal Record Start: 10/21/17 15: 55 Freq: DAILY@0900,1400,1800 Status: Active Protocol: Created 10/21/17 15:55 System (Rec: 10/21/17 15:55 System MED-C05) Document 10/21/17 18:00 [id number] (Rec: 10/21/17 18:21 [id number] MED-C07) Document 10/22/17 09:00 [id number] (Rec: 10/22/17 09:42 [id number] MED-C16) Document 10/22/17 14:00 [id number] (Rec: 10/22/17 14:40 [id number] MED-C16) Document 10/22/17 18:00 [id number] (Rec: 10/22/17 21:48 [id number] MED-C07) Document 10/23/17 09:00 [id number] (Rec: 10/23/17 09:17 [id number] MED-C11) Document 10/23/17 13:03 [id number] (Rec: 10/23/17 13:04 [id number] MED-C11) Document 10/23/17 17:47 [id number] (Rec: 10/23/17 17:47 [id number] MED-C16) Document 10/24/17 09:00 [id number] (Rec: 10/24/17 09:43 [id number] MED-C11) Document 10/24/17 13:56 [id number] (Rec: 10/24/17 13:59 [id number] MED-C11) Document 10/24/17 18:00 [id number] (Rec: 10/24/17 18:02 [id number] MED-C14) Document 10/25/17 09:00 [id number] (Rec: 10/25/17 14:06 [id number] MED-C07) Document 10/25/17 14:00 [id number] (Rec: 10/25/17 14:06 [id number] MED-C07) Document 10/25/17 18:00 [id number] (Rec: 10/25/17 18:24 [id number] MED-C11) Document 10/26/17 09:00 [id number] (Rec: 10/26/17 09:15 [id number] MED-C11) Document 10/26/17 12:58 [id number] (Rec: 10/26/17 12:59 [id number] MED-C11) Document 10/26/17 13:28 [id number] (Rec: 10/26/17 13:28 [id number] MED-C09) Document 10/26/17 18:00 [id number] (Rec: 10/26/17 18:40 [id number] MED-C11) Document 10/27/17 09:00 [id number] (Rec: 10/27/17 11:46 [id number] MED-C09) Document 10/27/17 14:00 [id number] (Rec: 10/27/17 14:47 [id number] MED-C09) Document 10/27/17 18:00 [id number] (Rec: 10/27/17 18:06 [id number] MED-C09) Intake and Output Start: 10/21/17 10: 56 Freq: Status: Active Protocol: Created 10/21/17 10:56 System (Rec: 10/21/17 10:56 System ED-C24) Intake and Output Start: 10/21/17 15: 55 Freq: DAILY@0600,1400,2200 Status: Active Protocol: Created 10/21/17 15:55 System (Rec: 10/21/17 15:55 System MED-C05) Document 10/21/17 21:53 [id number] (Rec: 10/21/17 21:55 [id number] MED-C07) Document 10/22/17 05:14 [id number] (Rec: 10/22/17 05:15 [id number] MED-C09) Document 10/22/17 14:00 [id number] (Rec: 10/22/17 14:40 [id number] MED-C16) Document 10/22/17 21:49 [id number] (Rec: 10/22/17 21:51 [id number] MED-C07) Document 10/23/17 05:35 [id number] (Rec: 10/23/17 05:36 [id number] MED-C11) Document 10/23/17 14:00 [id number] (Rec: 10/23/17 14:26 [id number] MED-C09) Document 10/23/17 20:03 [id number] (Rec: 10/23/17 20:04 [id number] MED-C16) Document 10/24/17 05:07 [id number] (Rec: 10/24/17 05:07 [id number] MED-C14) Document 10/24/17 06:00 [id number] (Rec: 10/24/17 07:03 [id number] MED-C11) Document 10/24/17 13:56 [id number] (Rec: 10/24/17 13:59 [id number] MED-C11) Document 10/24/17 19:57 [id number] (Rec: 10/24/17 19:58 [id number] MED-C14) Document 10/25/17 14:00 [id number] (Rec: 10/25/17 14:26 [id number] MED-C07) Document 10/25/17 21:27 [id number] (Rec: 10/25/17 21:27 [id number] MED-C11) Document 10/26/17 06:00 [id number] (Rec: 10/26/17 06:12 [id number] MED-C09) Document 10/26/17 14:00 [id number] (Rec: 10/26/17 15:16 [id number] MED-C11) Document 10/26/17 22:00 [id number] (Rec: 10/26/17 23:48 [id number] MED-C26) Document 10/27/17 05:16 [id number] (Rec: 10/27/17 05:16 [id number] MED-C04) Document 10/27/17 14:00 [id number] (Rec: 10/27/17 14:47 [id number] MED-C09) - Physical Exam General Physical Exam Comment: No acute distress; right ankle wrapped Head: Yes Normocephalic Endocrine: Yes Central Obesity Lungs and Chest: Yes: Chest Expansion Full, Chest Expansion Symetrica, Percussion Note Resonant Heart Rate and Rhythm: Regular JVP: Not Elevated Wake Beat: Non Displaced Additional Cardiovascular: Yes: Wake Beat not Displaced, Normal Heart Sounds Abdominal Exam: Yes: Soft - Rheumotological System Joints: Range of Motion, Joint Swelling - Ankle is wrapped - Neuro Psychiatric: Normal Speech: Normal Results - Results Lab Results: Laboratory Results - last 24 hr 10/26/17 10/26/17 10/26/17 16:48 16:51 18:33 ESR 49 H POC Glucose (mg/dL) Uric Acid 5.1 Fluid Source Synovial fluid Fluid Volume 1 Fluid Color Red Fluid Appearance Bloody Fluid WBC 74464 Fluid RBC 00916 Fluid Tot Cell Count 100 Fluid Neutrophils 88 Fluid Lymphocytes 6 Fluid Monocytes 6 Fluid Nucleated RBCs 1 Fluid Cell Count Rvw By Fluid Crystals 10/26/17 10/26/17 10/26/17 18:34 19:56 21:55 ESR POC Glucose (mg/dL) 175 H 152 H Uric Acid Fluid Source Fluid Volume Fluid Color Fluid Appearance Fluid WBC Fluid RBC Fluid Tot Cell Count Fluid Neutrophils Fluid Lymphocytes Fluid Monocytes Fluid Nucleated RBCs Fluid Cell Count Rvw By Fluid Crystals None seen 10/27/17 10/27/17 10/27/17 07:23 11:38 16:19 ESR POC Glucose (mg/dL) 89 216 H 204 H Uric Acid Fluid Source Fluid Volume Fluid Color Fluid Appearance Fluid WBC Fluid RBC Fluid Tot Cell Count Fluid Neutrophils Fluid Lymphocytes Fluid Monocytes Fluid Nucleated RBCs Fluid Cell Count Rvw By Fluid Crystals Assessment - Problem List Assessment: Patient Problems rheumatoid arthritis (Active) LILI (acute kidney injury) (Acute) Cellulitis (Acute) DVT prophylaxis (Acute) Full code status (Acute) Gouty arthritis (Acute) HLD (hyperlipidemia) (Acute) HTN (hypertension) (Acute) Morbid obesity (Acute) Nephrolithiasis, uric acid (Acute) Sepsis (Acute) Septic arthritis of ankle (Acute) Septic joint (Acute) Type 2 diabetes mellitus (Acute) Plan: Cellulitis: on antibiotics per ID. I have spoke to the infusion center; he should hold all immunosuppressive medications. Gout: follow uric acid. No crystals noted. Septic arthritis: per ortho recommendations, I discontinued Prednisone this morning. Given his infection, it should be held.
[2017-10-27] MEDS: Atorvastatin* 20 MG TAB PO SCH (22:29)
[2017-10-27] MEDS: Morphine INJ* 2 MG/ML 1 ML SYRINGE (TWO MG - NEW SYRINGE VERSION) IV PRN (22:30)
[2017-10-28] MEDS: oxyCODONE/Acetamin 5/325 MG* TAB PO PRN ×4 (01:16→21:01)
[2017-10-28] MEDS: Insulin GLARGINE(*) 1 UNITS UNIT SUBCUT SCH ×2 (05:20→17:36)
[2017-10-28] MEDS: Heparin VIAL(*) 5000 UNITS/ML VIAL (FIVE THOUSAND) SUBCUT SCH ×3 (05:20→21:13)
[2017-10-28] MEDS: ceFAZolin 2 GM PREMIX (*) 2 GM/50 ML BAG IVPB SCH ×3 (05:20→21:13)
[2017-10-28 06:49] LABS: Hematocrit 43 % (42-52); Hemoglobin 14.5 g/dl (14.0-18.0); Mean Corpuscular HGB Conc 34 g/dl (31-36); Mean Corpuscular Hemoglobin 32 pg (27-31); Mean Corpuscular Volume 96 fL (80-94); Mean Platelet Volume 7.7 um3 (7.4-10.4); Platelet Count 192 10^3/ul (150-450); Red Blood Count 4.53 10^6/ul (4.00-5.40); Red Cell Distribution Width 14 % (10.5-15)
[2017-10-28 07:15] LABS: ABS Basophils 0.1 10^3/ul (0-0.2); ABS Eosinophils 0.3 10^3/ul (0-0.6); ABS Monocytes 2.1 10^3/ul (0-0.8); ABS Neutrophils 8.5 10^3/ul (1.5-7.7); ABS Nucleated RBC 0 10^3/ul; Eosinophil % 2.1 % (0-6); Lymphocyte % 15.7 % (25-47); Nucleated Red Blood Cells % 0.1
[2017-10-28 08:01] LABS: EGFR Non-African American 79.2 (>60)
[2017-10-28] MEDS: Insulin LISPRO* 1 UNITS UNIT SUBCUT SCH ×4 (08:07→21:12)
[2017-10-28] MEDS: Propranolol LA CAP* 80 MG PO SCH (08:18)
[2017-10-28] MEDS: PARoxetine HCL TAB* 20 MG PO SCH (08:19)
[2017-10-28] MEDS: PTO:Potassium Citrate (NF) 10 MEQ TAB PO SCH ×3 (08:19→21:01)
[2017-10-28] MEDS: Hydrochlorothiazide TAB* 25 MG PO SCH (08:19)
[2017-10-28] MEDS: Allopurinol TAB* 300 MG PO SCH (08:19)
[2017-10-28] MEDS: Lisinopril TAB* 10 MG PO SCH (08:20)
[2017-10-28] MEDS: Omeprazole CAP* 20 MG PO SCH (08:21)
[2017-10-28] MEDS: busPIRone TAB* 10 MG PO SCH ×3 (08:21→21:01)
[2017-10-28] MEDS: Folic Acid TAB* 1 MG PO SCH (08:21)
[2017-10-28] MEDS: Colchicine* 0.6 MG TAB PO SCH ×2 (08:21→21:01)
--- NOTE | 2017-10-28 12:23 | PN ---
Progress Note - Progress Note Date of Service: 10/28/17 SOAP: Subjective: [] Patient seen at bedside. He feels well and is able to flex and extend the ankle and walk without pain. denies feeling of fever, chills, CP, SOB, dizziness. Objective: []General: Well appearing, NAD RLE: Dressing changed. Incision CDI with no erythema warmth or fluctuance of the foot or ankle. Mildly tender to palpation of the lateral ankle. Able to actively dorsiflex and plantarflex without pain. Calves supple and nontender without erythema, edema or palpable cords. Assessment: []Septic right ankle sp I&D Plan: []WBAT Continue antibiotics per ID- ancef 2 gm Q8hrs while here; ok for PICC and daptomycin 1 gm IV daily to finish 28 days at infusion center with weekly cbc, cmp, crp, ck Immunosuppressive rheum meds, predisone held during infection Vital Signs Temp 97.5 F 10/28/17 07:16 Pulse 59 10/28/17 07:16 Resp 14 10/28/17 10:35 BP 148/78 10/28/17 07:16 Pulse Ox 97 10/28/17 08:00 Intake & Output 10/27/17 10/28/17 10/28/17 18:59 06:59 18:59 Intake Total 950 640 360 Output Total 0 Balance 950 640 360 Intake: IV Fluids 160 ABX - CEFAZOLIN 100 NS (0.9%) 60 Oral 950 480 360 Output: Urine 0 Other: Date of Last Bowel unknown Movement # Bowel Movements 0 # Voids 2 Laboratory Last Values WBC 13.0 10^3/ul (3.5-10.8) H 10/28/17 06:07 RBC 4.53 10^6/ul (4.00-5.40) 10/28/17 06:07 Hgb 14.5 g/dl (14.0-18.0) 10/28/17 06:07 Hct 43 % (42-52) 10/28/17 06:07 MCV 96 fL (80-94) H 10/28/17 06:07 MCH 32 pg (27-31) H 10/28/17 06:07 MCHC 34 g/dl (31-36) 10/28/17 06:07 RDW 14 % (10.5-15) 10/28/17 06:07 Plt Count 192 10^3/ul (150-450) 10/28/17 06:07 MPV 7.7 um3 (7.4-10.4) 10/28/17 06:07 Neut % (Auto) 65.5 % (38-83) 10/28/17 06:07 Lymph % (Auto) 15.7 % (25-47) L 10/28/17 06:07 Ness % (Auto) 16.0 % (0-7) H 10/28/17 06:07 Eos % (Auto) 2.1 % (0-6) 10/28/17 06:07 Baso % (Auto) 0.7 % (0-2) 10/28/17 06:07 Absolute Neuts (auto) 8.5 10^3/ul (1.5-7.7) H 10/28/17 06:07 Absolute Lymphs (auto) 2.0 10^3/ul (1.0-4.8) 10/28/17 06:07 Absolute Monos (auto) 2.1 10^3/ul (0-0.8) H 10/28/17 06:07 Absolute Eos (auto) 0.3 10^3/ul (0-0.6) 10/28/17 06:07 Absolute Basos (auto) 0.1 10^3/ul (0-0.2) 10/28/17 06:07 Absolute Nucleated RBC 0 10^3/ul 10/28/17 06:07 Nucleated RBC % 0.1 10/28/17 06:07 ESR 49 mm/Hr (0-20) H 10/26/17 16:51 Sodium 137 mmol/L (135-145) 10/28/17 06:07 Potassium 4.3 mmol/L (3.5-5.0) 10/28/17 06:07 Chloride 99 mmol/L (101-111) L 10/28/17 06:07 Carbon Dioxide 30 mmol/L (22-32) 10/28/17 06:07 Anion Gap 8 mmol/L (2-11) 10/28/17 06:07 BUN 22 mg/dL (6-24) 10/28/17 06:07 Creatinine 0.97 mg/dL (0.67-1.17) 10/28/17 06:07 Est GFR ( Amer) 95.9 (>60) 10/28/17 06:07 Est GFR (Non-Af Amer) 79.2 (>60) 10/28/17 06:07 BUN/Creatinine Ratio 22.7 (8-20) H 10/28/17 06:07 Glucose 81 mg/dL (70-100) 10/28/17 06:07 POC Glucose (mg/dL) 169 mg/dL (70-100) H 10/28/17 11:47 Lactic Acid 2.1 mmol/L (0.5-2.0) H* 10/21/17 11:20 Uric Acid 5.1 mg/dL (4.4-7.6) 10/26/17 16:48 Calcium 9.0 mg/dL (8.6-10.3) 10/28/17 06:07 Total Bilirubin 1.00 mg/dL (0.2-1.0) 10/21/17 11:20 AST 29 U/L (13-39) 10/21/17 11:20 ALT 29 U/L (7-52) 10/21/17 11:20 Alkaline Phosphatase 95 U/L (34-104) 10/21/17 11:20 C-Reactive Protein 57.87 mg/L (<8.01) H 10/26/17 08:29 Total Protein 7.2 g/dL (6.4-8.9) 10/21/17 11:20 Albumin 4.1 g/dL (3.2-5.2) 10/21/17 11:20 Globulin 3.1 g/dL (2-4) 10/21/17 11:20 Albumin/Globulin Ratio 1.3 (1-3) 10/21/17 11:20 Fluid Source Synovial fluid 10/26/17 18:33 Fluid Volume 1 mL 10/26/17 18:33 Fluid Color Red 10/26/17 18:33 Fluid Appearance Bloody 10/26/17 18:33 Fluid WBC 72097 /mcL (0-971991) 10/26/17 18:33 Fluid RBC 96412 /mcL 10/26/17 18:33 Fluid Tot Cell Count 100 10/26/17 18:33 Fluid Neutrophils 88 % 10/26/17 18:33 Fluid Lymphocytes 6 % 07/30/18 18:33 Fluid Monocytes 6 % 10/26/17 18:33 Fluid Nucleated RBCs 1 10/26/17 18:33 Fluid Cell Count Rvw By 10/26/17 18:33 Fluid Crystals None seen (None Seen) 10/26/17 18:34 Vancomycin Trough 15.6 mcg/mL 10/22/17 09:39
--- NOTE | 2017-10-28 20:14 | PN ---
Subjective Date of Service: 10/28/17 Interval History: Patient reports he is feeling well and hopes to go home tomorrow. He has been ambulating on his foot and states his pain is controlled. No fevers or chills. Reports good appetite. No diarrhea/constipation. Denies SOB/CP. Family History: Unchanged from Admission Social History: Unchanged from Admission Past Medical History: Unchanged from Admission Objective Active Medications: Acetaminophen (Tylenol Tab*) 975 mg PO Q6H PRN PRN Reason: FEVER/PAIN Al Hydrox/Mg Hydrox/Simethicone (Maalox Plus*) 30 ml PO Q6H PRN PRN Reason: INDIGESTION Albuterol (Ventolin 2.5 Mg/3 Ml Neb.Alejandrina*) 2.5 mg INH [id number] AWAKE PRN PRN Reason: sob/wheezing Allopurinol (Zyloprim Tab*) 300 mg PO DAILY [facility] Last Admin: 10/28/17 08:19 Dose: 300 mg Atorvastatin Calcium (Lipitor*) 20 mg PO 2100 [facility] Last Admin: 10/27/17 22:29 Dose: 20 mg Buspirone HCl (Buspar Tab*) 10 mg PO TID [facility] Last Admin: 10/28/17 12:41 Dose: 10 mg Colchicine (Colcrys*) 0.6 mg PO BID [facility] Last Admin: 10/28/17 08:21 Dose: 0.6 mg Dextrose (D50w Syringe 50 Ml*) 12.5 gm IV PUSH .FOR FS < 60 - SS PRN PRN Reason: FS < 60 Folic Acid (Folvite Tab*) 1 mg PO DAILY [facility] Last Admin: 10/28/17 08:21 Dose: 1 mg Heparin Sodium (Porcine) (Heparin Vial(*)) 5,000 units SUBCUT Q8HR [facility] Last Admin: 10/28/17 12:42 Dose: 5,000 units Hydrochlorothiazide (Hydrodiuril Tab*) 12.5 mg PO DAILY [facility] Last Admin: 10/28/17 08:19 Dose: 12.5 mg Cefazolin Sodium/Dextrose (Kefzol 2 Gm Premix(*)) 2 gm in 50 mls @ 100 mls/hr IVPB Q8H [facility] Last Admin: 10/28/17 14:10 Dose: 100 mls/hr Insulin Glargine (Lantus(*)) 75 units SUBCUT Q12H [facility] Last Admin: 10/28/17 17:36 Dose: 75 unit Insulin Human Lispro (Humalog*) 0 units SUBCUT ACHS [facility]; Protocol Last Admin: 10/28/17 17:36 Dose: 3 units Lisinopril (Prinivil Tab*) 40 mg PO DAILY [facility] Last Admin: 10/28/17 08:20 Dose: 40 mg Magnesium Hydroxide (Milk Of Magnesia Liq*) 30 ml PO Q4H PRN PRN Reason: CONSTIPATION Morphine Sulfate (Morphine Inj (Syringe)*) 4 mg IV Q4H PRN PRN Reason: PAIN Last Admin: 10/27/17 22:30 Dose: 4 mg Omeprazole (Prilosec Cap*) 20 mg PO 0730 [facility] Last Admin: 10/28/17 08:21 Dose: 20 mg Ondansetron HCl (Zofran Inj*) 4 mg IV Q4H PRN PRN Reason: NAUSEA/VOMITING Oxycodone/Acetaminophen (Percocet 5/325 Tab*) 2 tab PO Q6H PRN PRN Reason: Pain Last Admin: 10/28/17 14:09 Dose: 2 tab Paroxetine HCl (Paxil Tab*) 40 mg PO DAILY [facility] Last Admin: 10/28/17 08:19 Dose: 40 mg Potassium Citrate (Urocit-K 10 (Nf)) 20 meq PO TID [facility] Last Admin: 10/28/17 12:41 Dose: 20 meq Propranolol HCl (Inderal La Cap*) 80 mg PO DAILY [facility] Last Admin: 10/28/17 08:18 Dose: 80 mg Vital Signs - 8 hr 10/28/17 10/28/17 10/28/17 13:43 14:09 15:43 Temperature 98.0 F Pulse Rate 61 Respiratory 14 16 Rate Blood Pressure 139/71 (mmHg) O2 Sat by Pulse 98 97 Oximetry 10/28/17 10/28/17 10/28/17 17:50 19:16 19:24 Temperature 98.7 F Pulse Rate 65 Respiratory 14 20 18 Rate Blood Pressure 114/53 (mmHg) O2 Sat by Pulse 96 Oximetry Oxygen Devices in Use Now: None Appearance: 57 yo male morbid obese male A+Ox3 in NAD. Eyes: No Scleral Icterus, PERRLA Ears/Nose/Mouth/Throat: NL Teeth, Lips, Gums, Mucous Membranes Moist Neck: NL Appearance and Movements; NL JVP Respiratory: Symmetrical Chest Expansion and Respiratory Effort, Clear to Auscultation Cardiovascular: NL Sounds; No Murmurs; No JVD, RRR, No Edema Abdominal: NL Sounds; No Tenderness; No Distention, - - obese Extremities: - - RLE ankle has CD+I dressing with no drainage noted. Good sensation to LEs. Trace edema b/l. warm pink dry. Neurological: Alert and Oriented x 3, NL Sensation Lines/Tubes/Other Access: Clean, Dry and Intact Peripheral IV Nutrition: Taking PO's Result Diagrams: 10/28/17 06:07 10/28/17 06:07 Microbiology and Other Data: Microbiology 10/26/17 21:20 Skin and Soft Tissue MRSA/MSSA (PCR - Final Foot Right Mrsa Negative S.aureus Positive Gram Stain - Final 10/26/17 18:33 Gram Stain - Final Joint Fluid(Synovial) - Ankle Right Skin and Soft Tissue MRSA/MSSA (PCR - Final Mrsa Negative S.aureus Positive Assess/Plan/Problems-Billing Assessment: Mr. Cat is a 57yo M with PMH of morbid obesity with BMI 50, HTN, HLD, type 2 DM, RA, anxiety, depression, who presented to ED with right foot swelling, redness, and pain found to have a arthritis right septic ankle with cellulitis requiring wash out. - Patient Problems (1) Septic joint Comment: POD #[address] Ahuja WBAT per ortho continue ancef 2 gms Q8hrs while here; will get PICC placed at infusion clinic and daptomycin 1gm IV daily for 28 days at infusion clinic with weekly cbc, cmp , crp, ck Dr. Olsen following; suspect he will need IV antibiotics for some time before po antibiotics (2) Cellulitis Comment: continue ancef (3) Gouty arthritis Comment: - Suspect gout is also playing a role on his clinical picture. - Responded well to Colchicine/Indomethacin, but his creatinine trended up. With discontinuation of indomethacin creatinine is improving. - Appreciate rheumatology consult. No prednisone per Dr. Leroy. follow uric acid.No crystal noted. - Continue Allopurinol. (4) rheumatoid arthritis Comment: - Continue MTX and Actemra as outpatient after infection is resolved. Recommends hold steroids at this time. (5) HTN (hypertension) Comment: Continue Lisinopril, HCTZ, and Propranolol. (6) Morbid obesity Comment: - With BMI 50. Will benefit of diet and weight loss - referred to [facility]. (7) Nephrolithiasis, uric acid Comment: Continue Allopurinol and potassium citrate. (8) Type 2 diabetes mellitus Comment: - Continue Lantus and Lispro SS. - Referred to [facility]. (9) Full code status (10) DVT prophylaxis Comment: - SQ heparin. Status and Disposition: Inpatient. Stable. Possible DC tomorrow if cleared by Ortho.
[2017-10-28] MEDS: Atorvastatin* 20 MG TAB PO SCH (21:01)
[2017-10-29] MEDS: ceFAZolin 2 GM PREMIX (*) 2 GM/50 ML BAG IVPB SCH ×2 (06:01→15:06)
[2017-10-29] MEDS: Heparin VIAL(*) 5000 UNITS/ML VIAL (FIVE THOUSAND) SUBCUT SCH ×2 (06:03→15:05)
[2017-10-29] MEDS: Insulin GLARGINE(*) 1 UNITS UNIT SUBCUT SCH (06:04)
[2017-10-29] MEDS: Insulin LISPRO* 1 UNITS UNIT SUBCUT SCH ×2 (07:41→15:05)
[2017-10-29] MEDS: Colchicine* 0.6 MG TAB PO SCH (09:57)
[2017-10-29] MEDS: PARoxetine HCL TAB* 20 MG PO SCH (09:57)
[2017-10-29] MEDS: Propranolol LA CAP* 80 MG PO SCH (09:57)
[2017-10-29] MEDS: Hydrochlorothiazide TAB* 25 MG PO SCH (09:57)
[2017-10-29] MEDS: Folic Acid TAB* 1 MG PO SCH (09:57)
[2017-10-29] MEDS: Omeprazole CAP* 20 MG PO SCH (09:57)
[2017-10-29] MEDS: Lisinopril TAB* 10 MG PO SCH (09:57)
[2017-10-29] MEDS: Allopurinol TAB* 300 MG PO SCH (09:58)
[2017-10-29] MEDS: PTO:Potassium Citrate (NF) 10 MEQ TAB PO SCH ×2 (09:58→15:05)
[2017-10-29] MEDS: busPIRone TAB* 10 MG PO SCH ×2 (09:58→15:10)
--- NOTE | 2017-10-29 10:44 | PN ---
Progress Note - Progress Note Date of Service: 10/29/17 SOAP: Subjective: []Patient seen at bedside. He feels very well. He has been walking and moving his right ankle without pain. Denies fever, chills, CP, SOB. Objective: [] Vital Signs Temp 98.1 F 10/29/17 07:43 Pulse 61 10/29/17 07:43 Resp 15 10/29/17 07:58 BP 145/84 10/29/17 07:43 Pulse Ox 96 10/29/17 07:58 Intake & Output 10/28/17 10/29/17 10/29/17 18:59 06:59 18:59 Intake Total 1120 540 240 Balance 1120 540 240 Intake: IV Fluids 70 40 ABX - CEFAZOLIN 55 NS (0.9%) 15 40 IVPB 100 ABX - CEFAZOLIN 100 Oral 1050 400 240 Other: Estimated Void Large # Bowel Movements 1 # Voids 2 1 Laboratory Last Values WBC 13.0 10^3/ul (3.5-10.8) H 10/28/17 06:07 RBC 4.53 10^6/ul (4.00-5.40) 10/28/17 06:07 Hgb 14.5 g/dl (14.0-18.0) 10/28/17 06:07 Hct 43 % (42-52) 10/28/17 06:07 MCV 96 fL (80-94) H 10/28/17 06:07 MCH 32 pg (27-31) H 10/28/17 06:07 MCHC 34 g/dl (31-36) 10/28/17 06:07 RDW 14 % (10.5-15) 10/28/17 06:07 Plt Count 192 10^3/ul (150-450) 10/28/17 06:07 MPV 7.7 um3 (7.4-10.4) 10/28/17 06:07 Neut % (Auto) 65.5 % (38-83) 10/28/17 06:07 Lymph % (Auto) 15.7 % (25-47) L 10/28/17 06:07 [place] % (Auto) 16.0 % (0-7) H 10/28/17 06:07 Eos % (Auto) 2.1 % (0-6) 10/28/17 06:07 Baso % (Auto) 0.7 % (0-2) 10/28/17 06:07 Absolute Neuts (auto) 8.5 10^3/ul (1.5-7.7) H 10/28/17 06:07 Absolute Lymphs (auto) 2.0 10^3/ul (1.0-4.8) 10/28/17 06:07 Absolute Monos (auto) 2.1 10^3/ul (0-0.8) H 10/28/17 06:07 Absolute Eos (auto) 0.3 10^3/ul (0-0.6) 10/28/17 06:07 Absolute Basos (auto) 0.1 10^3/ul (0-0.2) 10/28/17 06:07 Absolute Nucleated RBC 0 10^3/ul 10/28/17 06:07 Nucleated RBC % 0.1 10/28/17 06:07 ESR 49 mm/Hr (0-20) H 10/26/17 16:51 Sodium 137 mmol/L (135-145) 10/28/17 06:07 Potassium 4.3 mmol/L (3.5-5.0) 10/28/17 06:07 Chloride 99 mmol/L (101-111) L 10/28/17 06:07 Carbon Dioxide 30 mmol/L (22-32) 10/28/17 06:07 Anion Gap 8 mmol/L (2-11) 10/28/17 06:07 BUN 22 mg/dL (6-24) 10/28/17 06:07 Creatinine 0.97 mg/dL (0.67-1.17) 10/28/17 06:07 Est GFR ( Amer) 95.9 (>60) 10/28/17 06:07 Est GFR (Non-Af Amer) 79.2 (>60) 10/28/17 06:07 BUN/Creatinine Ratio 22.7 (8-20) H 10/28/17 06:07 Glucose 81 mg/dL (70-100) 10/28/17 06:07 POC Glucose (mg/dL) 174 mg/dL (70-100) H 10/28/17 21:04 Lactic Acid 2.1 mmol/L (0.5-2.0) H* 10/21/17 11:20 Uric Acid 5.1 mg/dL (4.4-7.6) 10/26/17 16:48 Calcium 9.0 mg/dL (8.6-10.3) 10/28/17 06:07 Total Bilirubin 1.00 mg/dL (0.2-1.0) 10/21/17 11:20 AST 29 U/L (13-39) 10/21/17 11:20 ALT 29 U/L (7-52) 10/21/17 11:20 Alkaline Phosphatase 95 U/L (34-104) 10/21/17 11:20 C-Reactive Protein 57.87 mg/L (<8.01) H 10/26/17 08:29 Total Protein 7.2 g/dL (6.4-8.9) 10/21/17 11:20 Albumin 4.1 g/dL (3.2-5.2) 10/21/17 11:20 Globulin 3.1 g/dL (2-4) 10/21/17 11:20 Albumin/Globulin Ratio 1.3 (1-3) 10/21/17 11:20 Fluid Source Synovial fluid 10/26/17 18:33 Fluid Volume 1 mL 10/26/17 18:33 Fluid Color Red 10/26/17 18:33 Fluid Appearance Bloody 10/26/17 18:33 Fluid WBC 76339 /mcL (0-557488) 10/26/17 18:33 Fluid RBC 89944 /mcL 10/26/17 18:33 Fluid Tot Cell Count 100 10/26/17 18:33 Fluid Neutrophils 88 % 10/26/17 18:33 Fluid Lymphocytes 6 % 10/26/17 18:33 Fluid Monocytes 6 % 10/26/17 18:33 Fluid Nucleated RBCs 1 10/26/17 18:33 Fluid Cell Count Rvw By 10/26/17 18:33 Fluid Crystals None seen (None Seen) 10/26/17 18:34 Vancomycin Trough 15.6 mcg/mL 10/22/17 09:39 General: Well appearing, NAD RLE: Dressing changed. Incision CDI with no erythema, warmth or fluctuance of the foot or ankle. Nontender to palpation of the lateral ankle. Able to actively and passively dorsiflex and plantarflex without pain. Calves supple and nontender without erythema, edema or palpable cords. Assessment: []Septic right ankle sp I&D Plan: []WBAT PICC placement today and plan for discharge Immunosuppressive rheum meds, predisone held during infection
[2017-10-29 11:54] VITALS: BP 138/81
--- NOTE | 2017-10-29 13:21 | PN ---
Subjective Date of Service: 10/29/17 Interval History: Mr. Cat denies complaint today and is eager for discharge to home. He specifically denies chest pain, SOB, nausea, or abdominal pain. He denies pain in his right ankle. Family History: Unchanged from Admission Social History: Unchanged from Admission Past Medical History: Unchanged from Admission Objective Active Medications: Acetaminophen (Tylenol Tab*) 975 mg PO Q6H PRN Al Hydrox/Mg Hydrox/Simethicone (Maalox Plus*) 30 ml PO Q6H PRN Albuterol (Ventolin 2.5 Mg/3 Ml Neb.Alejandrina*) 2.5 mg INH [id number] AWAKE PRN Allopurinol (Zyloprim Tab*) 300 mg PO DAILY [facility] Atorvastatin Calcium (Lipitor*) 20 mg PO 2100 [facility] Buspirone HCl (Buspar Tab*) 10 mg PO TID [facility] Colchicine (Colcrys*) 0.6 mg PO BID [facility] Dextrose (D50w Syringe 50 Ml*) 12.5 gm IV PUSH .FOR FS < 60 - SS PRN Folic Acid (Folvite Tab*) 1 mg PO DAILY [facility] Heparin Sodium (Porcine) (Heparin Vial(*)) 5,000 units SUBCUT Q8HR [facility] Hydrochlorothiazide (Hydrodiuril Tab*) 12.5 mg PO DAILY [facility] Cefazolin Sodium/Dextrose (Kefzol 2 Gm Premix(*)) 2 gm in 50 mls @ 100 mls/hr IVPB Q8H [facility] Insulin Glargine (Lantus(*)) 75 units SUBCUT Q12H [facility] Insulin Human Lispro (Humalog*) 0 units SUBCUT ACHS [facility]; Protocol Lisinopril (Prinivil Tab*) 40 mg PO DAILY [facility] Magnesium Hydroxide (Milk Of Magnesia Liq*) 30 ml PO Q4H PRN Morphine Sulfate (Morphine Inj (Syringe)*) 4 mg IV Q4H PRN Omeprazole (Prilosec Cap*) 20 mg PO 0730 [facility] Ondansetron HCl (Zofran Inj*) 4 mg IV Q4H PRN Oxycodone/Acetaminophen (Percocet 5/325 Tab*) 2 tab PO Q6H PRN Paroxetine HCl (Paxil Tab*) 40 mg PO DAILY [facility] Potassium Citrate (Urocit-K 10 (Nf)) 20 meq PO TID [facility] Propranolol HCl (Inderal La Cap*) 80 mg PO DAILY [facility] Vital Signs: Temp Pulse Resp BP Pulse Ox 97.8 F 68 18 138/81 97 10/29/17 11:10 10/29/17 11:10 10/29/17 11:10 10/29/17 11:10 10/29/17 11:10 Oxygen Devices in Use Now: None Appearance: Male lying in bed in NAD Eyes: No Scleral Icterus Ears/Nose/Mouth/Throat: Mucous Membranes Moist Neck: Trachea Midline Respiratory: Symmetrical Chest Expansion and Respiratory Effort, Clear to Auscultation Cardiovascular: NL Sounds; No Murmurs; No JVD, No Edema Abdominal: NL Sounds; No Tenderness; No Distention Extremities: No Edema Skin: No Rash or Ulcers Neurological: Alert and Oriented x 3, NL Muscle Strength and Tone Nutrition: Taking PO's Result Diagrams: 10/28/17 06:07 10/28/17 06:07 Assess/Plan/Problems-Billing Assessment: Mr. Cat is a 57yo M with PMH of morbid obesity with BMI 50, HTN, HLD, type 2 DM, RA, anxiety, depression, who presented to ED with right foot swelling, redness, and pain found to have right septic ankle with cellulitis with staph aureus. - Patient Problems (1) Septic joint Comment: - S/p washout with Dr. Rodriguez R ankle. - WBAT per ortho - Appreciate ID consult. PICC to be placed today with plan for daptomycin 1gm IV daily for 42 days at infusion clinic with weekly cbc, cmp, crp, ck (2) rheumatoid arthritis Comment: - Continue MTX and Actemra as outpatient after infection is resolved. Recommend hold steroids at this time. (3) LILI (acute kidney injury) Comment: - Resolved, likely secondary to NSAID use. (4) Gouty arthritis Comment: - Appreciate rheumatology consult. No prednisone per Dr. Leroy. - Continue Allopurinol. (5) HLD (hyperlipidemia) Comment: - Continue Atorvastatin. (6) HTN (hypertension) Comment: - Continue Lisinopril, HCTZ, and Propranolol. (7) Sepsis Comment: - Present on admission, now resolved. Source is cellulitis + septic joint. (8) Type 2 diabetes mellitus Comment: - Continue Lantus and Lispro SS. - Referred to [facility], Hgb Aic 7.2 07/15. (9) DVT prophylaxis Comment: - SQ heparin. (10) Full code status Status and Disposition: Discharge to home.
[2017-10-29] MEDS ORDERED: Perflutren Lipid Microsphere* 3 ML VIAL ONE (13:23)
--- NOTE | 2017-10-29 14:38 | ECHO ---
Patient: MAXINE ARAUZ [facility] Rec#: [id number] : 1960 Date: 10/29/2017 Age: 57y Height: 178 cm / 70.1 in Weight: 159 kg / 350.4 lbs Sex: M BSA: 2.65 Room#: [facility] Admit Date#: 10/21/2017 Type: Inpatient Referring: Anurag Laguna MD Reading: Cricket Roberts MD Denial Resolution Specialist: Mariaa Iqbal RDCS CC: Pedro Pandey MD Transthoracic Echocardiogram Indication: Bacteremia BP: 145/84 HR: 66 Rhythm: NSR Findings History: Morbid obesity, DM, cellulitis, HTN, HLD. Technical Comments: The study is technically limited due to patient body habitus. Completed at 1415. Left Ventricle: The left ventricular chamber size is normal. Mild to moderate concentric left ventricular hypertrophy is observed. There is normal left ventricular systolic function. The estimated ejection fraction is 55-60%. There is septal flattening of the interventricular septum consistent with right ventricular volume or pressure overload. Abnormal left ventricular diastolic function is observed. Abnormal left ventricular diastolic filling is observed, consistent with impaired relaxation. Left Atrium: The left atrium is mildly dilated. Right Ventricle: Moderator Band present. The right ventricle is mild to moderately dilated. Suboptimal imaging due to body habitus makes assessment of RV size difficult. The right ventricular global systolic function is mildly reduced. Right Atrium: The right atrium is not well visualized. Aortic Valve: The aortic valve is trileaflet. The aortic valve leaflets are mildly thickened. There is aortic annular calcification. There is no evidence of aortic regurgitation. There is no evidence of aortic stenosis. Mitral Valve: There is mitral annular calcification. The mitral valve leaflets are mildly thickened. There is a trace of mitral regurgitation. There is no evidence of mitral stenosis. Tricuspid Valve: The tricuspid valve leaflets are normal. There is trace tricuspid regurgitation. Unable to estimate the right ventricular systolic pressure. There is no tricuspid stenosis. Pulmonic Valve: The pulmonic valve structure is not well visualized. There is a trace pulmonic regurgitation. There is no pulmonic stenosis. Pericardium: There is no significant pericardial effusion. A pericardial fat pad is visualized. Aorta: There is no dilatation of the ascending aorta. There is no dilatation of the aortic arch. The aortic root is normal in size. Pulmonary Artery: The main pulmonary artery is not well visualized. Venous: The inferior vena cava appears normal in size. There is a greater than 50% respiratory change in the inferior vena cava dimension. Contrast: Definity was used to optimize study. 4 mL of diluted Definity was utilized. Intravenous contrast was used to enhance endocardial border definition. Conclusions The study is technically limited due to patient body habitus. Mild to moderate concentric left ventricular hypertrophy is observed. There is septal flattening of the interventricular septum consistent with right ventricular volume or pressure overload. Abnormal left ventricular diastolic filling is observed, consistent with impaired relaxation. The left atrium is mildly dilated. The right ventricle is mild to moderately dilated. Suboptimal imaging due to body habitus makes assessment of RV size difficult. The right ventricular global systolic function is mildly reduced. There is a trace of mitral regurgitation. There is trace tricuspid regurgitation. Unable to estimate the right ventricular systolic pressure. In limited avaiable views there does not appear to be any large pedunculated lesions on the aortic, mitral, or tricuspid valve. No reports of prior studies are offered for comparison. Measurements Name Value Normal Range RVIDd (AP) 2D 4.6 cm (0.9 - 2.6) RVDdMajor (2D) 5.7 cm (2.2 - 4.4) RAd ISD 4CH 5.6 cm (3.4 - 4.9) RA (A4C)W 6 cm (2.9 - 4.6) IVSd (2D) 1.3 cm (0.6 - 1) LVPWd (2D) 1.3 cm (0.6 - 1) LVIDd (2D) 3.9 cm (3.6 - 5.4) LVIDs (2D) 2.4 cm - LV FS (2D) 38 % (25 - 45) Aortic Annulus 2.2 cm (1.4 - 2.6) Ao root diameter (2D) 3.2 cm (2.1 - 3.5) Ascending Ao 3.3 cm (2.1 - 3.4) Aortic arch 2.6 cm (1.8 - 3.4) LA dimension (AP) 2D 4.1 cm (2.3 - 3.8) LAd ISD 4CH 6.3 cm (2.9 - 5.3) LA ISD 4CH W 5.4 cm (2.5 - 4.5) Name Value Normal Range LA ESV BP (A/L) index 26 ml/m2 - Name Value Normal Range MV E-wave Vmax 0.77 m/sec - MV deceleration time 180 msec - MV A-wave Vmax 0.97 m/sec - MV E:A ratio 0.8 ratio - LV septal e' Vmax 0.07 m/sec - LV lateral e' Vmax 0.09 m/sec - LV E:e' septal ratio 11 ratio - LV E:e' lateral ratio 8.56 ratio - Name Value Normal Range AV Vmax 1.5 m/sec - AV VTI 30.6 cm - AV peak gradient 9 mmHg - AV mean gradient 5 mmHg - LVOT Vmax 1.2 m/sec - LVOT VTI 23.2 cm - LVOT peak gradient 6 mmHg - LVOT mean gradient 3 mmHg - MAURA Vmax 0.8 m/sec - Name Value Normal Range IVC diameter 1.7 cm - Name Value Normal Range PV Vmax 1.42 m/sec -
--- NOTE | 2017-10-30 01:46 | DS ---
CC: Dr. Pandey * [facility] MEDICINE DISCHARGE SUMMARY: DATE OF ADMISSION: 10/21/17 DATE OF DISCHARGE: 10/29/17 PRIMARY CARE PHYSICIAN: Dr. Pandey. ATTENDING PHYSICIAN: Dr. Gordon Berry * (dictation provided by Alexandra Yi NP). PRIMARY DIAGNOSES: 1. Sepsis. 2. Right ankle septic arthritis with Staph aureus. 3. Cellulitis. 4. Acute kidney injury, now resolved. SECONDARY DIAGNOSES: 1. Insulin-dependent type 2 diabetes. 2. Hypertension. 3. Hyperlipidemia. 4. Morbid obesity. 5. Rheumatoid arthritis. 6. History of gout. 7. Depression. 8. Anxiety. PAST SURGICAL HISTORY: Significant for: 1. Left total hip arthroplasty. 2. Left cystoscopy with ureteral stent placement. MEDICATIONS OUTPATIENT: 1. Propranolol 80 mg p.o. daily. 2. Metformin 1500 mg q.p.m. and 1000 mg p.o. q.a.m. 3. BuSpar 10 mg p.o. t.i.d. 4. Potassium citrate 2 tabs p.o. t.i.d. 5. Paxil 40 mg p.o. daily. 6. Lisinopril 40 mg p.o. daily. 7. Lispro insulin 15 units subcutaneously t.i.d. with meals. 8. Glargine insulin 85 units subcutaneously b.i.d. 9. Hydrocodone with acetaminophen 7.5/300 one tab p.o. q.4 hours p.r.n. 10. Hydrochlorothiazide 12.5 mg p.o. daily. 11. Folic acid 1 mg p.o. daily. 12. Trulicity 0.75 mg subcutaneously weekly. 13. Diclofenac 1% one application topically daily p.r.n. 14. Atorvastatin 20 mg p.o. daily. 15. Allopurinol 300 mg p.o. daily. 16. Daptomycin 1000 mg IV daily x42 days via infusion center. 17. Colchicine 0.6 mg p.o. b.i.d. HOSPITAL COURSE: Mr. Cat is a 57-year-old male with a past medical history as outlined above, who presented to the hospital on 10/21/17, with concern for right foot and ankle swelling and redness. Please see the dictated H and P from Geetha Porter from complete details. In brief, the patient stated he noted the redness and swelling about 2 days prior to arrival. He denied any injury to the ankle. In the emergency room, labs showed a leukocytosis with white blood cell count of 21.1. His lactic acid was 2.1. His CRP was only 21.50. He was afebrile. His vitals were stable. He had an ankle x-ray that showed "diffuse soft tissue swelling." It was initially felt that the patient likely had right foot and ankle cellulitis only and he was treated with ceftriaxone and vancomycin. The patient improved slowly and he was switched over to cefazolin. On 10/24/17, it was noted that clinically he appeared to be improving, though he has had significant edema and his CRP was trending up, now at 65.50. At that point, consideration was made that the patient also had a component of gouty arthritis. Uric acid was not elevated as the patient is on allopurinol therapy for nephrolithiasis. At that time, colchicine and indomethacin were added. With this, the patient's pain and swelling were improved; however, the colchicine and indomethacin combination led to an elevated creatinine; therefore, these were discontinued. Due to the complex picture, Infectious Disease and Rheumatology were both consulted. Dr. Leroy provided consultation on 10/26/17, as well as Dr. Laguna and Dr. Rodriguez from Orthopedic Surgery. I refer you to their notes for the complete detail. The patient did have an ankle MRI, which showed "diffuse soft tissue swelling suggestive of cellulitis, effusions within the talocrural and subtalar joints and adjacent bone marrow edema in the tibia, fibula, talus, and calcaneus. These findings are nonspecific, although would raise the possibility of septic arthritis and osteomyelitis. Tenosynovitis involving the peroneal and posterior tibial tendons, mild Achilles tendinitis." Dr. Laguna agreed with the current treatment, which was Ancef as well as treatment for gout. Dr. Leroy agreed that the patient likely had an infection, although a component of gouty arthritis could be contributing. Dr. Rodriguez from Orthopedics, performed a joint aspiration, which ultimately grew Staph aureus. When the results were received from the urine Gram stain, the patient was immediately taken for right ankle washout by Dr. Rodriguez on 10/26/17. Mr. Cat has been doing well since the washout. He has been followed by Dr. Laguna, Dr. Leroy, and Dr. Rodriguez. Dr. Laguna recommends that the patient have 42 days of antibiotic therapy. At this point, he is recommending daptomycin. The patient will be following up with Dr. Laguna who will monitor weekly CBC, CMP, CRP and CK labs. The patient has been followed up by the orthopedic team while in the hospital and they feel that his ankle is healing appropriately and there is no evidence of ongoing infection. The patient will be following with Dr. Rodriguez tomorrow. In terms of Dr. Leroy's recommendations, he does note that the patient should hold all immunosuppressive medications until his infection is cleared and that has been recommended to Mr. Cat as well. Mr. Cat is medically stable for discharge to home. DISPOSITION: To home. DIET: Low-fat, low-salt, low-carb. ACTIVITY: As tolerated. FOLLOWUP PLANS: 1. Please follow up with the infusion center tomorrow at 9 a.m. for first dose of daptomycin. 2. Please follow up with Dr. Rodriguez tomorrow at 11 a.m. 3. Please follow up with Dr. Laguna in the next 1 to 2 weeks. 4. Please follow up with Dr. Pandey in the next 1 to 2 weeks. TIME SPENT: Approximately 60 minutes were spent on the discharge of this patient, more than half the time was spent with the patient at the bedside reviewing the events leading up to and during this hospitalization, performing the physical examination, and reviewing my plan of care. ALEXANDRA YI NP [id number]/[facility] #: [id number] ROCKY
--- NOTE | 2017-11-02 09:33 | OP ---
CC: PCP, Pedro Pandey MD * DATE OF OPERATION: 10/26/17 - ROOM #412 DATE OF : 56 SURGEON: Lola Rodriguez MD. FONDANT MACHINE OPERATOR: None available. PRE-OP DIAGNOSIS: Right ankle septic arthritis. POST-OP DIAGNOSIS: Right ankle septic arthritis. OPERATIVE PROCEDURE: Open right ankle joint I and D. INDICATIONS: Lawson Cat is a 57-year-old immunocompromised gentleman with rheumatoid arthritis and insulin-dependent diabetes, who has had almost a week history of right hip, foot, and ankle pain. He had an MRI concerning for an effusion and an aspiration done by me today demonstrated that while blood counts were low, he had 1+ gram-positive cocci. After extensive discussion of the risks and benefits, because there is bacteria potentially in his joint and if not just surrounding cellulitis, we agreed to proceed with an I and D of the ankle. Risks and benefits were discussed at length and include but not limited to bleeding, infection, damage to nerves, vessels, surrounding structures, wound not healing, persistent pain, need for further surgery, scarring, stiffness, incomplete relief of symptoms, risk of anesthesia, risk of worsening arthritis. COMPLICATIONS: None. ESTIMATED BLOOD LOSS: Minimal. DESCRIPTION OF PROCEDURE: The patient was greeted in the preoperative area. The correct extremity was marked and consent was confirmed. The patient was brought back to the operating room suite where he was placed in the supine position on the operating room table. He then underwent a general anesthesia with an LMA intubation. Unsterile tourniquet was placed on the proximal thigh. The right leg was then prepped and draped in the usual sterile fashion beginning with chlorhexidine soap, scrub, and alcohol wipe, and a final prep with ChloraPrep. After appropriate surgical pause indicating site, side, procedure, and administration of antibiotics, the incision made over the anteromedial tubercle arthroscopy portal to do anteromedial arthrotomy was then done carefully with 15 blade between medial malleolus in the tibialis anterior. The soft tissues were carefully dissected. The joint capsules identified then a size using a 15- blade. Bloody discharge was identified but no jerrod pus. The sample was sent to the lab. The I and D began then about 12 L of sterile saline were then placed through the joint. The joint was mobilized to make sure that this was thoroughly flushed and 12 L of sterile saline were irrigated through the wound carefully. Soft tissues were carefully dissected. The joint itself was visualized. There was no obvious arthritic change or erosion that was present in the small window. Once the lavage was completed, no deep sutures were placed as it is very small arthrotomy window. Skin was closed with 3-0 nylon interrupted fashion. Sterile dressings were applied. He was awaken from anesthesia and transferred to PACU in stable condition. POSTOPERATIVE PLAN: He will be weightbearing as tolerated, range of motion as tolerated. We will monitor him closely with antibiotics. He will be discharged on IV antibiotics. ID will follow. We will follow him if he needs another I and D potentially this week, otherwise we will see him in clinic on Thursday. As far as DVT prophylaxis was concerned, he is on heparin while he is inpatient. We will see the patient back in followup. [id number]/[facility] #: [id number] ROCKY
== END 2017-10-29 16:40 | disposition home or self-care (01) | DRG 720 ==
LOC: ED 10:38 → MED 14:23
PROVIDERS: ADMIT Hospitalist; ATTEND Internal Medicine
PROC: 0S9F3ZX Drainage of Right Ankle Joint, Percutaneous Approach, Diagnostic (ICD-10-PCS; principal; 2017-10-26 20:30)
DX: A41.9 Sepsis, unspecified organism (principal); L03.115 Cellulitis of right lower limb; M00.071 Staphylococcal arthritis, right ankle and foot; N17.9 Acute kidney failure, unspecified; Z68.43 Body mass index [BMI] 50.0-59.9, adult; E11.65 Type 2 diabetes mellitus with hyperglycemia; I10 Essential (primary) hypertension; M19.90 Unspecified osteoarthritis, unspecified site; Z96.642 Presence of left artificial hip joint; Z87.891 Personal history of nicotine dependence; I87.8 Other specified disorders of veins; E78.5 Hyperlipidemia, unspecified; M06.9 Rheumatoid arthritis, unspecified; E66.01 Morbid (severe) obesity due to excess calories; F32.9 Major depressive disorder, single episode, unspecified; F41.9 Anxiety disorder, unspecified; G47.33 Obstructive sleep apnea (adult) (pediatric); M20.41 Other hammer toe(s) (acquired), right foot; M65.871 Other synovitis and tenosynovitis, right ankle and foot; M25.474 Effusion, right foot; M10.9 Gout, unspecified; B95.61 Methicillin susceptible Staphylococcus aureus infection as the cause of diseases classified elsewhere; N20.0 Calculus of kidney; R74.8 Abnormal levels of other serum enzymes; Z79.4 Long term (current) use of insulin; Z95.828 Presence of other vascular implants and grafts; Z72.89 Other problems related to lifestyle; Z86.14 Personal history of Methicillin resistant Staphylococcus aureus infection; T50.4X5A Adverse effect of drugs affecting uric acid metabolism, initial encounter; T39.395A Adverse effect of other nonsteroidal anti-inflammatory drugs [NSAID], initial encounter
CPT/HCPCS: 36415; 80048; 80053; 80202; 83605; 84550; 85025; 85652; 86140; 87070; 87073; 87077; 87186; 87205; 87640; 87641; 89051; 89060; 93005; 93306; 99284; A9270-GY; C1751; C8929; J0330; J0690; J0696; J1170; J1644; J2270; J2704; J3010; J3370; J3490; J7512

== ENCOUNTER 2022-11-20 21:40 | Inpatient (IN) ==
[2022-11-20 22:12] LABS: Hematocrit 52.3 % (38-53); Hemoglobin 17.5 g/dL (13.2-16.3); Mean Corpuscular Hemoglobin 29.9 pg (27-33); Mean Corpuscular Hgb Conc 33.5 g/dL (31-36); Mean Corpuscular Volume 89.3 fL (80-97); Mean Platelet Volume 8.3 fL (7.5-11.2); Platelet Count 134 10^3/uL (150-450); Red Blood Count 5.86 10^6/uL (4.06-5.63); Red Cell Distribution Width 15.2 % (12-17); White Blood Count 20.5 10^3/uL (3.6-10.2)
[2022-11-20] MEDS ORDERED: Lactated Ringers 1000 ml BAG 1,000 ML IV ONE (22:24)
[2022-11-20 22:29] LABS: ALT 23 U/L (7-52); Albumin 3.3 g/dL (3.2-5.2); Alkaline Phosphatase 120 U/L (35-149); Blood Urea Nitrogen 37 mg/dL (6-24); CO2 Carbon Dioxide 18 mmol/L (22-32); Calcium 8.4 mg/dL (8.6-10.3); Chloride 89 mmol/L (101-111); Creatinine, Serum 1.75 mg/dL (0.67-1.17); Globulin 3.3 g/dL (2-4); Glucose 376 mg/dL (70-100); Sodium 125 mmol/L (135-145); Total Protein 6.6 g/dL (6.4-8.9); eGFR CKD-EPI 42.9 (>60)
[2022-11-20 22:33] LABS: Anion Gap 18 mmol/L (2-16)
[2022-11-20 22:34] LABS: High Sens Troponin Baseline 1414 pg/mL (<20)
[2022-11-20 22:49] LABS: INR 1.21 (0.83-1.13)
[2022-11-20 23:34] LABS: Venous Bicarbonate HCO3 19.7 mmol/L (24-28)
[2022-11-20] MEDS ORDERED: Heparin DRIP 25,000 UNITS BAG 25,000 UNITS/500 ML BAG IV SCH (23:45)
[2022-11-20 23:55] LABS: Potassium Redraw 4.3 mmol/L (3.5-5.0)
[2022-11-21] LABS: High Sensitivity Troponin 1 Hr 1405 pg/mL (<20)
[2022-11-21] MEDS ORDERED: Lactated Ringers 1000 ml BAG 1,000 ML IV ONE ×3 (00:12→21:30)
[2022-11-21] MEDS ORDERED: Dextrose 50% Syringe 50 ml 25 GM/50 ML SYRINGE IV PUSH PRN ×3 (00:17→11:07)
[2022-11-21] MEDS: Heparin 5000 UNITS/ML 1 mL VIAL IV SCH ×2 (00:20→06:25)
[2022-11-21 00:42] LABS: ABS Basophils 0.1 10^3/uL (0.0-0.1); ABS Lymphocytes 0.3 10^3/uL (1.0-4.8); ABS Monocytes 1.7 10^3/uL (0.0-1.1); ABS Neutrophils 18.4 10^3/uL (1.5-7.6); ABS Nucleated RBC 0.02 10^3/ul; Lymphocyte % 1.7 %; Nucleated Red Blood Cells % 0.1 /100 WBC (0.0-0.4)
[2022-11-21 00:58] LABS: Activated Partial Thrombo Time 38.6 seconds (26.0-38.0)
[2022-11-21] MEDS ORDERED: Insulin Infusion 100unit/100mL 100 UNIT/100 ML BAG IV SCH (01:00)
[2022-11-21] MEDS ORDERED: Ondansetron 4 mg VIAL 2 MG/ML 2 ml VIAL IV PRN (01:05)
[2022-11-21 01:27] LABS: Magnesium 1.6 mg/dL (1.9-2.7)
[2022-11-21] MEDS ORDERED: Magnesium Sulfate IV 3 GM in NS 0.9% 100 ml BAG 100 ML IVPB ONE (01:29)
[2022-11-21] MEDS ORDERED: Enoxaparin 40 MG/0.4 ML SYR SUBCUT SCH (02:00)
[2022-11-21 02:11] LABS: Creatinine, Serum 1.52 mg/dL (0.67-1.17); Potassium 3.8 mmol/L (3.5-5.0); eGFR CKD-EPI 50.9 (>60)
[2022-11-21] MEDS ORDERED: Potassium Chloride IV 40 MEQ in Lactated Ringers 1000 ml BAG 1,000 ML IVPB SCH (03:00)
[2022-11-21] MEDS ORDERED: Lactated Ringers 1000 ml BAG 1,000 ML IV SCH (03:00)
[2022-11-21] MEDS ORDERED: D5W NS 0.9% 40Meq KCL 1000 ml 1,000 ML IV SCH (05:00)
[2022-11-21 05:57] LABS: ABS Eosinophils 0.1 10^3/uL (0.0-0.5); ABS Lymphocytes 0.8 10^3/uL (1.0-4.8); ABS Monocytes 1.1 10^3/uL (0.0-1.1); ABS Neutrophils 17.2 10^3/uL (1.5-7.6); ABS Nucleated RBC 0.01 10^3/ul; Eosinophil % 0.4 %; Hematocrit 44.8 % (38-53); Hemoglobin 15.3 g/dL (13.2-16.3); Lymphocyte % 4.3 %; Mean Corpuscular Hemoglobin 29.7 pg (27-33); Mean Corpuscular Hgb Conc 34.2 g/dL (31-36); Mean Corpuscular Volume 86.9 fL (80-97); Mean Platelet Volume 7.8 fL (7.5-11.2); Nucleated Red Blood Cells % 0.1 /100 WBC (0.0-0.4); Platelet Count 120 10^3/uL (150-450); Red Blood Count 5.16 10^6/uL (4.06-5.63); White Blood Count 19.3 10^3/uL (3.6-10.2)
[2022-11-21 06:09] LABS: Creatinine, Serum 1.42 mg/dL (0.67-1.17); Magnesium 2.4 mg/dL (1.9-2.7); Phosphorus 2.6 mg/dL (2.5-5.0); Potassium 3.9 mmol/L (3.5-5.0); eGFR CKD-EPI 55.2 (>60)
[2022-11-21] MEDS ORDERED: Insulin GLARGINE 100 un/ml 10 ml VIAL SUBCUT ONE (06:24)
[2022-11-21] MEDS ORDERED: ZOSYN 3.375 GM x ONE DOSE over 30 miuntes IV (08:30)
[2022-11-21] MEDS ORDERED: Zosyn per Pharmacy NOTE FOLLOW UP SCH (09:00)
[2022-11-21] MEDS ORDERED: NF: Potassium Citrate 10 meq TAB (NF) PO SCH (09:00)
[2022-11-21 11:01] LABS: Calcium 7.7 mg/dL (8.6-10.3); Creatinine, Serum 1.54 mg/dL (0.67-1.17); Phosphorus 1.9 mg/dL (2.5-5.0); Potassium 4.1 mmol/L (3.5-5.0); eGFR CKD-EPI 50.1 (>60)
[2022-11-21] MEDS ORDERED: Vancomycin per Pharmacy 1 EA NOTE FOLLOW UP PRN (11:30)
[2022-11-21 11:50] LABS: Calcium 7.6 mg/dL (8.6-10.3); Creatinine, Serum 1.61 mg/dL (0.67-1.17); Phosphorus 1.8 mg/dL (2.5-5.0); eGFR CKD-EPI 47.5 (>60)
[2022-11-21] MEDS ORDERED: Vancomycin 2,000 MG in NS 0.9% 500 ml BAG 500 ML IVPB ONE (12:00)
[2022-11-21] MEDS ORDERED: Albumin Human 5% 12.5 GM/250 ML BTL IV ONE (12:30)
[2022-11-21] MEDS ORDERED: Potassium Phosphate IV 15 MMOL in NS 0.9% 250 ml 250 ML IVPB ONE (13:14)
[2022-11-21] MEDS ORDERED: ZOSYN 3.375 GM Q8H per EXTENDED INFUSION IV SCH (13:30)
[2022-11-21] MEDS ORDERED: Oxacillin 2 GM in NS 0.9% 100 ml BAG 100 ML IVPB SCH (15:00)
[2022-11-21] MEDS: Oxacillin 2 GM in NS 0.9% 100 ml BAG 100 ML IVPB SCH ×2 (16:54→21:43)
[2022-11-21 17:23] LABS: Blood Urea Nitrogen 40 mg/dL (6-24); CO2 Carbon Dioxide 22 mmol/L (22-32); Chloride 100 mmol/L (101-111); Creatinine, Serum 1.87 mg/dL (0.67-1.17); Glucose 191 mg/dL (70-100); Magnesium 2.2 mg/dL (1.9-2.7); Sodium 131 mmol/L (135-145); eGFR CKD-EPI 39.7 (>60)
[2022-11-21 17:31] LABS: Anion Gap 9 mmol/L (2-16)
[2022-11-21 18:51] LABS: Potassium, Whole Blood 4.4 mmol/L (3.4-4.5)
[2022-11-21] MEDS ORDERED: Acetaminophen IV 1 GM/100ML 1,000 MG/100 ML BAG IV PRN (20:35)
[2022-11-21] MEDS ORDERED: Acetaminophen IV 1 GM/100ML 1,000 MG/100 ML BAG IV ONE (20:39)
[2022-11-21] MEDS ORDERED: Norepinephrine 16MCG/ML BAGD5W 4,000 MCG/250 ML BAG IV ONE (22:19)
[2022-11-21] MEDS: Norepinephrine 16MCG/ML BAGD5W 4,000 MCG/250 ML BAG IV SCH (22:33)
[2022-11-21] MEDS ORDERED: Norepinephrine 16MCG/ML BAG NS 4,000 MCG/250 ML BAG IV SCH (23:00)
[2022-11-22] MEDS: Oxacillin 2 GM in NS 0.9% 100 ml BAG 100 ML IVPB SCH ×6 (02:25→21:21)
[2022-11-22 05:10] LABS: Albumin 2.8 g/dL (3.2-5.2); Albumin/Globulin Ratio 1.1 (1-3); Calcium 7.8 mg/dL (8.6-10.3); Creatinine, Serum 1.8 mg/dL (0.67-1.17); Globulin 2.5 g/dL (2-4); Magnesium 2.2 mg/dL (1.9-2.7); Phosphorus 3.6 mg/dL (2.5-5.0); Potassium 3.9 mmol/L (3.5-5.0); Total Bilirubin 1.5 mg/dL (0.2-1.0); Total Protein 5.3 g/dL (6.4-8.9); eGFR CKD-EPI 41.5 (>60)
[2022-11-22 05:29] LABS: Activated Partial Thrombo Time 38.3 seconds (26.0-38.0); INR 1.16 (0.83-1.13)
[2022-11-22 05:33] LABS: ABS Basophils 0.1 10^3/uL (0.0-0.1); ABS Monocytes 2.2 10^3/uL (0.0-1.1); ABS Neutrophils 18.4 10^3/uL (1.5-7.6); ABS Nucleated RBC 0.01 10^3/ul; Eosinophil % 0.1 %; Hematocrit 44.8 % (38-53); Lymphocyte % 4.7 %; Mean Corpuscular Hemoglobin 29.6 pg (27-33); Mean Corpuscular Hgb Conc 33.6 g/dL (31-36); Mean Corpuscular Volume 88.2 fL (80-97); Mean Platelet Volume 8.8 fL (7.5-11.2); Nucleated Red Blood Cells % 0.1 /100 WBC (0.0-0.4); Platelet Count 68 10^3/uL (150-450); Red Blood Count 5.08 10^6/uL (4.06-5.63); Red Cell Distribution Width 15.4 % (12-17); White Blood Count 21.7 10^3/uL (3.6-10.2)
[2022-11-22 08:29] LABS: Urine Appearance Cloudy; Urine Bilirubin Negative (Negative); Urine Blood 3+ (Negative); Urine Color Amber; Urine Glucose 3+(>=500 mg/dL) (Negative); Urine Ketones Negative (Negative); Urine Nitrite Negative (Negative); Urine Protein 1+(30 mg/dL) (Negative); Urine Specific Gravity 1.015 (1.002-1.030); Urine Urobilinogen Negative (Negative)
[2022-11-22 08:50] LABS: Urine Bacteria 1+ (Absent); Urine Red Blood Cell 3+(>10/hpf) (Absent); Urine Squamous Epithelial Cell Present (Absent); Urine White Blood Cell Trace(0-5/hpf) (Absent)
[2022-11-22] MEDS ORDERED: Fondaparinux 5 MG/0.4 ML SYRINGE SUBCUT SCH (12:00)
[2022-11-22] MEDS: Norepinephrine 16MCG/ML BAGD5W 4,000 MCG/250 ML BAG IV SCH (18:52)
[2022-11-23] MEDS: Oxacillin 2 GM in NS 0.9% 100 ml BAG 100 ML IVPB SCH ×6 (02:04→22:05)
[2022-11-23 03:07] LABS: Urine Appearance Cloudy; Urine Bilirubin Negative (Negative); Urine Blood 3+ (Negative); Urine Color Amber; Urine Glucose 2+(150 mg/dL) (Negative); Urine Ketones Negative (Negative); Urine Nitrite Negative (Negative); Urine Protein 1+(30 mg/dL) (Negative); Urine Specific Gravity 1.018 (1.002-1.030); Urine Urobilinogen Positive (Negative)
[2022-11-23 03:19] LABS: Urine Bacteria Absent (Absent); Urine Red Blood Cell 3+(>10/hpf) (Absent); Urine White Blood Cell 1+(6-10/hpf) (Absent)
[2022-11-23 04:09] LABS: ABS Eosinophils 0.1 10^3/uL (0.0-0.5); ABS Monocytes 1.7 10^3/uL (0.0-1.1); ABS Neutrophils 12.1 10^3/uL (1.5-7.6); ABS Nucleated RBC 0.01 10^3/ul; Eosinophil % 0.6 %; Hematocrit 45.4 % (38-53); Hemoglobin 15.2 g/dL (13.2-16.3); Lymphocyte % 6.8 %; Mean Corpuscular Hemoglobin 29.5 pg (27-33); Mean Corpuscular Hgb Conc 33.5 g/dL (31-36); Mean Platelet Volume 8.9 fL (7.5-11.2); Nucleated Red Blood Cells % 0.1 /100 WBC (0.0-0.4); Platelet Count 61 10^3/uL (150-450); Red Blood Count 5.16 10^6/uL (4.06-5.63); Red Cell Distribution Width 15.3 % (12-17); White Blood Count 14.9 10^3/uL (3.6-10.2)
[2022-11-23 04:25] LABS: Albumin 2.7 g/dL (3.2-5.2); Albumin/Globulin Ratio 1.1 (1-3); Calcium 7.8 mg/dL (8.6-10.3); Creatinine, Serum 1.29 mg/dL (0.67-1.17); Globulin 2.5 g/dL (2-4); Magnesium 2.1 mg/dL (1.9-2.7); Phosphorus 2.8 mg/dL (2.5-5.0); Potassium 3.7 mmol/L (3.5-5.0); Total Protein 5.2 g/dL (6.4-8.9); eGFR CKD-EPI 61.9 (>60)
[2022-11-23] MEDS: Insulin GLARGINE 100 un/ml 10 ml VIAL SUBCUT SCH (22:05)
[2022-11-24] MEDS: Oxacillin 2 GM in NS 0.9% 100 ml BAG 100 ML IVPB SCH ×6 (02:11→21:38)
[2022-11-24 05:15] LABS: Hematocrit 42.9 % (38-53); Hemoglobin 14.4 g/dL (13.2-16.3); Mean Corpuscular Hemoglobin 29.4 pg (27-33); Mean Corpuscular Hgb Conc 33.6 g/dL (31-36); Mean Corpuscular Volume 87.6 fL (80-97); Mean Platelet Volume 8.6 fL (7.5-11.2); Platelet Count 92 10^3/uL (150-450); Red Cell Distribution Width 16.2 % (12-17); White Blood Count 13.3 10^3/uL (3.6-10.2)
[2022-11-24 05:29] LABS: Blood Urea Nitrogen 38 mg/dL (6-24); CO2 Carbon Dioxide 23 mmol/L (22-32); Calcium 7.4 mg/dL (8.6-10.3); Chloride 105 mmol/L (101-111); Creatinine, Serum 1.07 mg/dL (0.67-1.17); Glucose 203 mg/dL (70-100); Sodium 139 mmol/L (135-145); eGFR CKD-EPI 77.5 (>60)
[2022-11-24 05:34] LABS: Anion Gap 11 mmol/L (2-16)
[2022-11-24 05:55] LABS: TSH Ultra Thyroid Stim Horm 1.37 mcIU/mL (0.34-5.60)
[2022-11-24 08:40] LABS: ABS Basophils 0.1 10^3/uL (0.0-0.1); ABS Eosinophils 0.2 10^3/uL (0.0-0.5); ABS Lymphocytes 1.5 10^3/uL (1.0-4.8); ABS Monocytes 2.5 10^3/uL (0.0-1.1); ABS Neutrophils 9.2 10^3/uL (1.5-7.6); ABS Nucleated RBC 0.04 10^3/ul; Eosinophil % 1.2 %; Nucleated Red Blood Cells % 0.3 /100 WBC (0.0-0.4); RBC Morphology Normal (Normal)
[2022-11-24] MEDS ORDERED: Midazolam 5 mg/5 ml VIAL 1 mg/ml 5 ml VIAL (5 mg) ONE (12:45)
[2022-11-24] MEDS ORDERED: Flumazenil 0.5 mg/5 ml 0.1 MG/ML 5 ml VIAL ONE (12:46)
[2022-11-24] MEDS ORDERED: fentaNYL 100 mcg/2 ml 50 MCG/ML VIAL ONE (12:46)
[2022-11-24] MEDS ORDERED: Naloxone 0.4 mg VIAL 0.4 mg/ml 1 ml VIAL ONE (12:46)
[2022-11-24] MEDS ORDERED: Midazolam 10 mg/10 ml VIAL 1 mg/ml 10 ml VIAL (10 mg) IV SLOW PU ONE (13:29)
[2022-11-24] MEDS ORDERED: fentaNYL 100 mcg/2 ml 50 MCG/ML VIAL IV SLOW PU ONE (13:29)
[2022-11-24] MEDS: Calcium/Vitamin D TAB 250/125 TAB PO SCH (17:06)
[2022-11-24 20:50] LABS: HIT ELISA < 0.050 OD (<0.400); Heparin PF4 Antibody Interp Negative (Negative)
[2022-11-24] MEDS: Insulin GLARGINE 100 un/ml 10 ml VIAL SUBCUT SCH (21:32)
[2022-11-25] MEDS: Oxacillin 2 GM in NS 0.9% 100 ml BAG 100 ML IVPB SCH ×6 (02:03→21:30)
[2022-11-25 05:46] LABS: Hematocrit 41.1 % (38-53); Hemoglobin 13.9 g/dL (13.2-16.3); Mean Corpuscular Hemoglobin 29.6 pg (27-33); Mean Corpuscular Hgb Conc 33.8 g/dL (31-36); Mean Corpuscular Volume 87.4 fL (80-97); Mean Platelet Volume 8.3 fL (7.5-11.2); Platelet Count 118 10^3/uL (150-450); Red Cell Distribution Width 16.2 % (12-17)
[2022-11-25 05:50] LABS: ABS Basophils 0.1 10^3/uL (0.0-0.1); ABS Eosinophils 0.2 10^3/uL (0.0-0.5); ABS Lymphocytes 1.5 10^3/uL (1.0-4.8); ABS Neutrophils 10.1 10^3/uL (1.5-7.6); ABS Nucleated RBC 0.01 10^3/ul; Eosinophil % 1.6 %; Lymphocyte % 10.7 %
[2022-11-25 06:04] LABS: Albumin 2.5 g/dL (3.2-5.2); Albumin/Globulin Ratio 0.9 (1-3); Calcium 8.1 mg/dL (8.6-10.3); Creatinine, Serum 0.91 mg/dL (0.67-1.17); Globulin 2.9 g/dL (2-4); Magnesium 1.9 mg/dL (1.9-2.7); Phosphorus 2.8 mg/dL (2.5-5.0); Potassium 3.8 mmol/L (3.5-5.0); Total Bilirubin 0.9 mg/dL (0.2-1.0); Total Protein 5.4 g/dL (6.4-8.9); eGFR CKD-EPI 94.1 (>60)
[2022-11-25] MEDS: Calcium/Vitamin D TAB 250/125 TAB PO SCH (09:08)
[2022-11-25 19:17] LABS: Hematocrit 39.3 % (38-53); Hemoglobin 13.1 g/dL (13.2-16.3)
[2022-11-25] MEDS: Insulin GLARGINE 100 un/ml 10 ml VIAL SUBCUT SCH (20:40)
[2022-11-26] MEDS: Oxacillin 2 GM in NS 0.9% 100 ml BAG 100 ML IVPB SCH ×5 (01:53→18:40)
[2022-11-26 06:17] LABS: Hematocrit 37.1 % (38-53); Hemoglobin 12.5 g/dL (13.2-16.3); Mean Corpuscular Hemoglobin 29.3 pg (27-33); Mean Corpuscular Hgb Conc 33.7 g/dL (31-36); Mean Platelet Volume 8.8 fL (7.5-11.2); Platelet Count 158 10^3/uL (150-450); Red Blood Count 4.26 10^6/uL (4.06-5.63); Red Cell Distribution Width 15.5 % (12-17); White Blood Count 17.9 10^3/uL (3.6-10.2)
[2022-11-26 06:37] LABS: Calcium 7.4 mg/dL (8.6-10.3); Creatinine, Serum 0.99 mg/dL (0.67-1.17); Magnesium 1.7 mg/dL (1.9-2.7); eGFR CKD-EPI 85.1 (>60)
[2022-11-26 06:48] LABS: ABS Basophils 0.3 10^3/uL (0.0-0.1); ABS Eosinophils 0.3 10^3/uL (0.0-0.5); ABS Lymphocytes 1.6 10^3/uL (1.0-4.8); ABS Monocytes 1.5 10^3/uL (0.0-1.1); ABS Neutrophils 14.2 10^3/uL (1.5-7.6); ABS Nucleated RBC 0.03 10^3/ul; Eosinophil % 1.7 %; Lymphocyte % 9.1 %; Nucleated Red Blood Cells % 0.2 /100 WBC (0.0-0.4)
[2022-11-26] MEDS: Calcium/Vitamin D TAB 250/125 TAB PO SCH (08:40)
[2022-11-26] MEDS ORDERED: Enoxaparin 40 MG/0.4 ML SYR SUBCUT SCH (09:00)
[2022-11-26] MEDS: NS 0.9% 1000 ml BAG 1,000 ML IV SCH ×2 (11:01→23:19)
[2022-11-26] MEDS ORDERED: Pantoprazole VIAL 40 MG VIAL IV ONE (11:02)
[2022-11-26] MEDS: Pantoprazole 80 mg in NS BAG 80 MG/250 ML BAG IV SCH ×2 (11:42→23:19)
[2022-11-26] MEDS ORDERED: Magnesium Sulfate 2 gm BAG 2 GM/50 ML BAG IVPB ONE (11:55)
[2022-11-26 12:25] LABS: Hematocrit 35.6 % (38-53); Hemoglobin 11.8 g/dL (13.2-16.3)
[2022-11-26 20:07] LABS: Hematocrit 31.7 % (38-53); Hemoglobin 10.6 g/dL (13.2-16.3)
[2022-11-26] MEDS: Insulin GLARGINE 100 un/ml 10 ml VIAL SUBCUT SCH (21:49)
[2022-11-26] MEDS: ceFAZolin 2 GM in NS PREMIX 2 GM/100 ML BAG IVPB SCH (22:23)
[2022-11-27 05:58] LABS: Hematocrit 28.3 % (38-53); Hemoglobin 9.5 g/dL (13.2-16.3); Mean Corpuscular Hemoglobin 29.3 pg (27-33); Mean Corpuscular Hgb Conc 33.7 g/dL (31-36); Mean Corpuscular Volume 86.8 fL (80-97); Mean Platelet Volume 8.7 fL (7.5-11.2); Platelet Count 195 10^3/uL (150-450); Red Blood Count 3.26 10^6/uL (4.06-5.63); Red Cell Distribution Width 15.8 % (12-17); White Blood Count 17.3 10^3/uL (3.6-10.2)
[2022-11-27 05:59] LABS: ABS Basophils 0.1 10^3/uL (0.0-0.1); ABS Eosinophils 0.3 10^3/uL (0.0-0.5); ABS Lymphocytes 2.2 10^3/uL (1.0-4.8); ABS Monocytes 1.7 10^3/uL (0.0-1.1); Eosinophil % 1.7 %; Lymphocyte % 12.6 %
[2022-11-27] MEDS: ceFAZolin 2 GM in NS PREMIX 2 GM/100 ML BAG IVPB SCH ×2 (06:06→16:17)
[2022-11-27 06:14] LABS: Calcium 7.6 mg/dL (8.6-10.3); Creatinine, Serum 1.39 mg/dL (0.67-1.17); Potassium 3.9 mmol/L (3.5-5.0); eGFR CKD-EPI 56.6 (>60)
[2022-11-27] MEDS ORDERED: NS 0.9% 1000 ml BAG 1,000 ML IV SCH (07:46)
[2022-11-27] MEDS: Pantoprazole 80 mg in NS BAG 80 MG/250 ML BAG IV SCH (10:20)
[2022-11-27] MEDS ORDERED: Propofol 10 MG/ML 20 ML BTL ONE (14:57)
[2022-11-27] MEDS ORDERED: Insulin GLARGINE 100 un/ml 10 ml VIAL SUBCUT SCH (21:00)
[2022-11-27 22:46] VITALS: BP 114/56
== END 2022-11-27 18:15 | disposition short-term general hospital (02) | DRG 720 ==
LOC: ED 21:40 → EDHOLD 11-21 01:05 → SUATTDRO 11-21 01:05 → ICU 11-21 01:43 → SSU 11-25 16:45 → MEDTELE 11-26 15:55
PROVIDERS: ADMIT Student in an Organized Health Care Education/Training Program; ATTEND Hospitalist
PROC: O.GIEGD (2022-11-27 13:35)